=== PATIENT | male | born 1985 | race Caucasian/White ===

== ENCOUNTER 2024-02-12 20:17 | Emergency (ER) | payer BC, SELFPAY ==
[2024-02-12 20:17] VITALS: BP 166/98; PULSE 96; RESP 20; TEMP 36.8; O2SAT 95
[2024-02-12 20:32] VITALS: BMI 48.5
[2024-02-12 20:33] VITALS: BP 147/85; PULSE 91; RESP 20; TEMP 36.7
--- NOTE | 2024-02-12 20:52 | EKG12_ITS ---
Test Reason : CP Blood Pressure : / mmHG Vent. Rate : 084 BPM Atrial Rate : 084 BPM P-R Int : 192 ms QRS Dur : 100 ms QT Int : 360 ms P-R-T Axes : 006 016 008 degrees QTc Int : 425 ms Normal sinus rhythm Normal ECG Confirmed by DEANNE LEAVITT MD ([id number]), features editor MICHAEL FLORES ([id number]) on 02/15/2024 8:50:34 AM Referred By: Confirmed By:DEANNE LEAVITT MD
[2024-02-12 21:00] LABS: Absolute Lymphocyte Count 3.38 X10^3/uL (0.83-4.51); Absolute Neutrophil Count 8.6 X10^3/uL (2.0-7.7); Basophil# 0.07 X10^3/uL; Basophil% 0.5 % (0-1); Eosinophil# 0.11 X10^3/uL; Eosinophils% 0.8 % (0-5); Hematocrit 51.2 % (40-54); Hemoglobin 16.8 g/dL (13.0-16.5); Lymphocyte # 3.38 X10^3/ul (0.83-4.51); Mean Corp Hgb Conc 32.8 g/dL (32-36); Mean Corpuscular Hgb 27.8 pg (27.0-32.0); Mean Corpuscular Volume 84.8 fL (80-94); Mean Platelet Vol. 10.8 fl (6.2-12.0); Monocyte# 0.83 X10^3/uL; Monocyte% 6.4 % (0-10); NRBC Flagged by Analyzer 0 % (0-5); Neutrophil # 8.55 X10^3/uL (2.7-7.7); Neutrophil % 65.8 % (47-70); Platelet Count 336 K/mm3 (150-450); RBC Distribution Width CV 12.6 % (11.6-14.6); RBC Distribution Width SD 38.5 fl (35.1-43.9); Red Blood Count 6.04 M/mm3 (4.6-6.2)
--- NOTE | 2024-02-12 21:10 | RAD_ITS ---
STUDY: X-RAY CHEST REASON FOR EXAM: Male, 38 years old. cough TECHNIQUE: Single AP portable view of the chest. COMPARISON: None. FINDINGS: The lungs are clear and expanded. There is no demonstrated pleural abnormality. Normal size heart. Normal mediastinum and mary. Normal visualized pulmonary arteries. Normal visualized aortic arch and descending thoracic aorta. Normal visualized thoracic spine. Normal visualized ribs, clavicles, and shoulders. There is no demonstrated abnormality of the visualized soft tissue structures of the upper abdomen. RAD/Chest 1 View (Portable) IMPRESSION: Normal x-ray examination of the chest. Electronically Signed: Alo Martinez MD at 21:43 EDT ,
--- NOTE | 2024-02-12 21:11 | EDS_ITS ---
HPI History of Present Illness Chief Complaint: Chest Pain Detail of Chief Complaint: Patient has more than 1 complaint. Informant: patient and spouse/S.O. Onset/Context/Timing Onset: Today (Today around 1800 he had chest discomfort left side lasted an hour or so.), Days (Last several days she is experienced discomfort right and left shoulder region with diaphoresis and shortness of breath.) and Weeks (With regards to not feeling well with fatigue) Activity at onset: sudden Timing: Intermittent Quality: Positive for - (Achy shoulder region, tightness left chest region) Current Severity: Gone Maximum Severity: Moderate Worsened By: Nothing Relieved By: Nothing Associated Symptoms: Positive for Diaphoresis and Dyspnea; Negative for Nausea, Vomiting, Cough, Fever, Lightheadedness, Acid Reflux or Palpitations Narrative Narrative: Patient is a 38-year-old male with obstructive sleep apnea who was recently started on blood pressure medicine and restarted on oral agents for type 2 diabetes. Patient was suspicious his blood sugars were elevated. He states he is compliant with his CPAP machine. He denies history of PE or DVT. He has no risk factors for PE or DVT. He denies leg pain, swelling discoloration. He denies orthopnea or PND. Patient states every so months he feels vague fatigue weakness and not feeling well. This has been going on for a couple of weeks. He has had intermittent tightness achy sensation right and left shoulder associated with shortness of breath and diaphoresis. This lasts a couple of minutes at most. Patient also reports left-sided chest pain today that lasted for some time. This was not associated with nausea, vomiting or diaphoresis. Patient does not have history of reflux. Prior Similar Symptoms: No Recent Illness/Hospitalization: No CVD Risk Factors: Positive for Hypertension, Diabetes and Family History 1' </=55; Negative for Hypercholesterolemia PE Risk Factors: Negative for Recent Travel/Surgery, Recent Immobilization, Prior DVT or PE, Cancer or OCP + Smoking + >/=35 TAD Risk Factors: Positive for Hypertension; Negative for Marfan's Syndrome or Family History [facility] Medical History HTN (hypertension) OCD (obsessive compulsive disorder) Diabetes Allergy/AdvReac Type Severity Reaction Status Date / Time acetaminophen (From Vicodin) Allergy Severe Other Verified 02/12/24 20:25 hydrocodone (From Vicodin) Allergy Severe Other Verified 02/12/24 20:25 morphine Allergy Severe OTHER Verified 02/12/24 20:25 naproxen Allergy Severe Other Verified 02/12/24 20:25 Family History other other (Multiple relatives with heart disease.) Social History (Updated 02/12/24 @ 21:[address] Ian Benavides MD) household members: spouse Smoking Status: Never smoker ROS ROS ED Constitutional Constitutional ED: Denies chills, fever(s), subjective or sweats Eyes Eyes: Reports none ENT ENT ED: Denies ear pain, rhinorrhea or sore throat Cardiovascular Cardiovascular: Reports as per HPI; Denies orthopnea or paroxysmal nocturnal dyspnea Respiratory/Chest Respiratory/Chest: Reports dyspnea; Denies cough, dyspnea on exertion, orthopnea or paroxysmal nocturnal dyspnea Gastrointestinal Gastrointestinal: Denies abdominal pain, nausea or vomiting Genitourinary Genitourinary ED: Denies dysuria, hematuria or urinary frequency Musculoskeletal Musculoskeletal: Denies back pain or neck pain Integumentary Denies abscess, Abrasions or rash Neurologic Neurologic: Denies headache(s), paresthesias or weakness Psychiatric Psychiatric: Denies anxiety or depression Endocrine Endocrinology: Denies cold intolerance or heat intolerance Hematologic/Lymphatic Hematologic/Lymphatic: Denies easy bleeding or easy bruising Allergic/Immunologic Allergic/Immunologic ED: Denies mouth swelling or tongue swelling EXAM Physical Exam Const Vital Signs: 02/12/24 20:17 02/12/24 20:28 02/12/24 20:33 Temperature 98.3 F 98.1 F Temperature Source Temporal Temporal Pulse Rate 96 91 Respiratory Rate 20 H 20 H Respiratory Effort Normal Blood Pressure 166/98 H 147/85 H Blood Pressure Mean 120 105 Pulse Ox 95 Oxygen Delivery Method Room Air 02/12/24 21:17 02/12/24 22:00 02/12/24 23:00 Temperature 98.1 F Temperature Source Temporal Pulse Rate 78 89 89 Respiratory Rate 16 20 H 16 Respiratory Effort Blood Pressure 147/86 H 143/82 H 119/58 L Blood Pressure Mean 106 102 78 Pulse Ox 98 95 98 Oxygen Delivery Method Room Air Room Air Room Air Positive well nourished and well developed Constitutional Narrative: BMI is 48.5. General Appearance ED: well developed and NAD; Negative for pallor HEENT Reports moist mucous membranes HEENT Narrative: Nares patent. Posterior pharynx is normal. normocephalic and atraumatic Eyes PERRL and EOMs intact bilaterally General Eye ED: Negative for pale conjunctiva or scleral icterus Neck no lymphadenopathy, supple and no JVD Chest Wall inspection of chest normal and palpation of chest normal Resp normal respiratory effort and clear to auscultation bilaterally Cardio regular rate, regular rhythm, S1 normal heart sound, S2 normal heart sound and no murmurs GI normal to inspection, nondistended, normoactive bowel sounds, soft to palpation, non-tender, non-distended and no masses; Negative for hepatosplenomegaly Back/Spine no CVA tenderness Extremity normal to inspection Extremity Narrative: There is no asymmetry, swelling, discoloration, leg vein distention, palpable cords or tenderness along the distribution of the deep venous system. Neuro oriented x3 and CN's II-XII intact bilaterally Neuro Narrative: Moves all extremities. Sensorium / Orientation: awake and alert Psych mental status grossly normal Skin no rashes or lesions noted and no wounds General Skin Exam: Negative for jaundice or pallor Heart Score History: Slightly/Non-Suspicious ECG: Normal Age: </= 45 years Risk Factors: >/= 3 Risk Factors or History of CAD Troponin: </= Normal Limit Score: 2 MDM MDM MDM Narrative Medical decision making narrative: Patient with atypical presentation for possible cardiac versus noncardiac. Noncardiac would include reflux, esophagitis, peptic ulcer disease,. History and physical not suggestive or consistent with pericarditis or myocarditis. Patient does not have symptoms of pneumonia. Patient's Wells score is less than 3. Patient is PERC negative. Therefore a D-dimer and CTA was not ordered. History & Record Review Discussion w/independent historian: Patient and Significant other Additional record(s) reviewed:: No prior records Lab Data Attestation: I reviewed the patient's lab results. Lab results narrative: White count is slightly elevated. H&H is unremarkable. Differential is normal. Electrolyte panel is remarkable for elevated glucose of 194 with normal CO2 anion gap. Lipase is normal. First troponin is normal at 8. 2-hour troponin is pending. Liver enzymes are elevated AST and ALT at 66 and 108 respectively. Alkaline phosphatase is elevated at 156. Labs: Laboratory Results - last 24 hr 02/12/24 02/12/24 20:35 23:07 WBC 13.0 H RBC 6.04 Hgb 16.8 H Hct 51.2 MCV 84.8 MCH 27.8 MCHC 32.8 RDW Std Deviation 38.5 RDW Coeff of Tin 12.6 Plt Count 336 MPV 10.8 Immature Gran % (Auto) 0.500 Neut % (Auto) 65.8 Lymph % (Auto) 26.0 [place] % (Auto) 6.4 Eos % (Auto) 0.8 Baso % (Auto) 0.5 Absolute Neuts (auto) 8.6 H Absolute Lymphs (auto) 3.38 Nucleated RBC % 0 Sodium 135 L Potassium 3.8 Chloride 103 Carbon Dioxide 23.0 Anion Gap 9 BUN 28 H Creatinine 1.22 Estim Creat Clear Calc 139.32 Est GFR (MDRD) Af Amer 85 Est GFR (MDRD) Non-Af 70 BUN/Creatinine Ratio 23.0 H Glucose 194 H Calcium 9.7 Total Bilirubin 0.50 AST 66 H ALT 108 H Alkaline Phosphatase 156 H Troponin I High Sens 8 8 Total Protein 8.1 Albumin 3.9 Globulin 4.2 Albumin/Globulin Ratio 0.9 Lipase 25 Second troponin is 8 with a delta of 0. Heart score is 2. Radiography Chest X-Ray - ED: 1 View and Read by ED Physician (Single view portable film reveals no cardiomegaly. Cardiac silhouette is normal. Lung parenchyma is unremarkable. Mediastinum is unremarkable. Osseous structures are normal. This independent reviewed interpreted by me at 2118.) Diagnostic Testing: Clinical Impression(s) from Imaging Studies Chest X-Ray 02/12/24 21:10 IMPRESSION: Normal x-ray examination of the chest. Electronically Signed: Alo Martinez MD at 21:43 EDT , EKG Initial EKG: Attestation: I personally reviewed and interpreted this EKG as follows: Interpretation: Sinus Rhythm (Rate is 84. The EKG is normal. MT interval is 192 ms. QRS duration 100 ms. QT duration 360 ms. [place] is normal.) Discharge Plan Triage Chief Complaint: Chest Pain ED Provider: Ian Benavides Dx/Rx/DC Orders Clinical Impression: Left-sided chest pain, Obstructive sleep apnea, Hyperglycemia due to type 2 diabetes mellitus, History of hypertension Instructions: ED Chest Pain, Uncertain Cause, ED Diabetic Hyperglycemia Primary Care Provider: Brock Sandoval Referrals: Brock Sandoval MD [Primary Care Provider] - 3-5 Days Print Language: Azerbaijani Disposition Disposition: Home, Self Care
[2024-02-12 21:17] VITALS: BP 147/86; PULSE 78; RESP 16; O2SAT 98
[2024-02-12 21:22] LABS: ALB/GLOB Ratio 0.9 RATIO (0.9-2.4); AST(SGOT) 66 U/L (15-37); Alanine Aminotransfer ALT/SGPT 108 U/L (16-61); Albumin, Serum 3.9 g/dL (3.2-5.0); Alkaline Phosphatase 156 U/L (45-117); Anion Gap 9 (5-15); BUN 28 mg/dL (7-18); Calcium,Total 9.7 mg/dL (8.5-10.1); Chloride 103 mmol/L (98-107); Creatinine, Serum 1.22 mg/dL (0.70-1.30); EST Glomerular Filtration Rate 70 mL/min (>60); Est Glom Filt Rate - Afr Amer 85 mL/min (>60); Estimated Creatinine Clearance 139.32 ml/min; Globulin 4.2 g/dL (2.2-4.2); Glucose 194 mg/dL (74-106); Lipase 25 U/L (13-75); Potassium 3.8 mmol/L (3.5-5.1); Protein, Total 8.1 g/dL (6.4-8.2); Sodium Level 135 mmol/L (136-145); Troponin-I HS 8 pg/mL (3.0-78.0)
[2024-02-12 22:00] VITALS: BP 143/82; PULSE 89; RESP 20; TEMP 36.7; O2SAT 95
[2024-02-12 23:00] VITALS: BP 119/58; PULSE 89; RESP 16; O2SAT 98
[2024-02-12 23:36] LABS: Troponin-I HS 8 pg/mL (3.0-78.0)
[2024-02-12 23:47] VITALS: BP 122/59; PULSE 81; RESP 16; TEMP 36.4; O2SAT 99
== END 2024-02-12 23:48 | disposition home or self-care (01) ==
PROVIDERS: Nurse Practitioner; Emergency Provider Emergency Medicine; PCP Family Medicine; Visit Provider Emergency Medicine
DX: R07.89 Other chest pain (principal); E11.65 Type 2 diabetes mellitus with hyperglycemia; G47.33 Obstructive sleep apnea (adult) (pediatric); I10 Essential (primary) hypertension; Z99.89 Dependence on other enabling machines and devices
CPT/HCPCS: 71045; 80053; 83690; 84484; 85025; 93005; 99283; A4216

== ENCOUNTER 2024-03-17 07:52 | Emergency (ER) | payer BC, SELFPAY ==
[2024-03-17 07:53] VITALS: BP 196/102; PULSE 70; RESP 16; TEMP 36.7; O2SAT 96; BMI 48.1
--- NOTE | 2024-03-17 08:04 | ED.VIS.CHEST ---
HPI History of Present Illness Chief Complaint: Chest Pain Informant: patient Onset/Context/Timing Onset: Today Activity at onset: sudden Timing: Waxes and wanes Quality: Positive for Tightness Location: Left Chest and - (Left shoulder) Worsened By: Nothing Relieved By: Nothing Associated Symptoms: Positive for Nausea, Cough, Lightheadedness, Acid Reflux and Palpitations; Negative for Vomiting, Diaphoresis, Dyspnea or Fever Narrative Narrative: Patient presents with chest pain that began this morning. Patient states that over the last couple days he had noted some pain in his left shoulder going down to his left arm. Patient states it would come and go. Patient states that when he woke up this morning he noted pain in his left shoulder that radiated down into his chest. Patient states he called his primary care physician and was directed to come to the emergency department. Patient states nothing makes it better and nothing makes it worse. Patient describes his pain as a tightness. Patient admits to some nausea. Patient also admits to some lightheadedness and palpitations. Patient states he got a new rosi on his phone which indicated that he was having frequent PVCs. Patient states that when he gets the PVCs he feels them in his throat which causes him to cough. Patient states he has also been fatigued over the last month. Patient states he was recently started on antihypertensive medication and Mounjaro. CVD Risk Factors: Positive for Hypertension, Diabetes and Family History 1' </=55; Negative for Hypercholesterolemia or Smoking PE Risk Factors: Negative for Recent Travel/Surgery, Recent Immobilization, Prior DVT or PE, Cancer or OCP + Smoking + >/=35 PFSH PFSH Medical History (Updated 03/17/24 @ 12:[address] Kenneth Quevedo, ) HTN (hypertension) OCD (obsessive compulsive disorder) Diabetes Allergy/AdvReac Type Severity Reaction Status Date / Time acetaminophen (From Vicodin) Allergy Severe Other Verified 03/17/24 07:55 hydrocodone (From Vicodin) Allergy Severe Other Verified 03/17/24 07:55 morphine Allergy Severe OTHER Verified 03/17/24 07:55 naproxen Allergy Severe Other Verified 03/17/24 07:55 Surgical History (Updated 03/17/24 @ 08:[address] Kenneth Quevedo DO) History of excision of pilonidal cyst History of herniorrhaphy Hx of cholecystectomy Hx of tonsillectomy Social History household members: spouse Smoking Status: Never smoker ROS ROS ED Constitutional Constitutional ED: Denies chills or fever(s) Eyes Eyes: Denies blurry vision or change in vision ENT ENT ED: Denies rhinorrhea or sore throat Cardiovascular Cardiovascular: Reports chest pain and palpitations Respiratory/Chest Respiratory/Chest: Reports cough; Denies dyspnea Gastrointestinal Gastrointestinal: Reports nausea; Denies vomiting Genitourinary Genitourinary ED: Denies dysuria or hematuria Musculoskeletal Musculoskeletal: Reports neck pain; Denies back pain Integumentary Denies abscess or rash Neurologic Neurologic: Denies headache(s) or weakness Allergic/Immunologic Allergic/Immunologic ED: Denies mouth swelling or urticaria EXAM Physical Exam Const Vital Signs: 03/17/24 07:53 03/17/24 08:06 03/17/24 08:52 Temperature 98.1 F Temperature Source Temporal Pulse Rate 70 73 Respiratory Rate 16 20 H Respiratory Effort Normal Non-Labored Blood Pressure 196/102 H 142/83 H Blood Pressure Mean 133 102 Pulse Ox 96 96 Oxygen Delivery Method Room Air Room Air 03/17/24 10:00 03/17/24 11:00 Temperature Temperature Source Pulse Rate 64 66 Respiratory Rate 20 H 21 H Respiratory Effort Blood Pressure 110/65 127/84 H Blood Pressure Mean 80 98 Pulse Ox 93 95 Oxygen Delivery Method Room Air Room Air Positive well nourished and well developed General Appearance ED: well developed and NAD HEENT Reports moist mucous membranes Neck supple and no JVD Chest Wall inspection of chest normal and palpation of chest normal Resp normal respiratory effort and clear to auscultation bilaterally Cardio regular rate and regular rhythm GI soft to palpation, non-tender and non-distended Extremity General Extremety ED: Negative for edema or tenderness General Extremity: Negative for edema Neuro oriented x3, CN's II-XII intact bilaterally and no sensory deficits noted Sensorium / Orientation: awake and alert Motor Exam: strength 5/5 throughout Psych mental status grossly normal Heart Score History: Slightly/Non-Suspicious ECG: Normal Age: </= 45 years Risk Factors: >/= 3 Risk Factors or History of CAD Troponin: </= Normal Limit Score: 2 MDM MDM MDM Narrative Medical decision making narrative: Differential diagnosis includes cardiac dysrhythmia, cardiac ischemia, electrolyte abnormality, pneumonia, pneumothorax, hypertensive urgency, hypertensive emergency, and anxiety. EKG will be obtained to assess for cardiac dysrhythmia and cardiac ischemia. Chest x-ray will be obtained to assess for pneumonia and pneumothorax. CBC will be obtained to assess for leukocytosis and anemia. Basic metabolic profile will be obtained to assess for electrolyte abnormality and renal function. High-sensitivity troponin will be obtained to assess for cardiac ischemia. 2-hour repeat high-sensitivity troponin will be obtained to assess for ongoing cardiac ischemia. Lab Data Attestation: I reviewed the patient's lab results. Lab results narrative: CBC was reviewed and was within normal limits. Basic metabolic profile was reviewed. Potassium was slightly low at 3.4. Glucose was mildly elevated at 175. The remainder was within normal limits. High-sensitivity troponin was reviewed and was normal at 7. 2-hour repeat high-sensitivity troponin was reviewed and was normal at 7. Labs: Laboratory Results - last 24 hr 03/17/24 03/17/24 08:15 10:23 WBC 8.2 RBC 5.65 Hgb 15.9 Hct 47.7 MCV 84.4 MCH 28.1 MCHC 33.3 RDW Std Deviation 40.5 RDW Coeff of Tin 13.2 Plt Count 304 MPV 10.9 Immature Gran % (Auto) 0.400 Neut % (Auto) 61.0 Lymph % (Auto) 30.0 [place] % (Auto) 6.8 Eos % (Auto) 1.2 Baso % (Auto) 0.6 Absolute Neuts (auto) 5.0 Absolute Lymphs (auto) 2.46 Nucleated RBC % 0 Sodium 136 Potassium 3.4 L Chloride 106 Carbon Dioxide 24.0 Anion Gap 6 BUN 15 Creatinine 0.86 Estim Creat Clear Calc 196.64 Est GFR (MDRD) Af Amer 127 Est GFR (MDRD) Non-Af 105 BUN/Creatinine Ratio 17.5 Glucose 175 H Calcium 9.1 Troponin I High Sens 7 7 Radiography Chest X-Ray - ED: 2 View, Read by ED Physician, Read by Radiologist and No Acute Disease Diagnostic Testing: Clinical Impression(s) from Imaging Studies Chest X-Ray 03/17/24 08:45 IMPRESSION: Normal x-ray examination of the chest. Electronically Signed: Clayton Robles MD at 9:00 EDT , PA and lateral chest x-ray was obtained. There are 2 views. On my independent interpretation, lung dennis are clear. There is normal cardiac silhouette. Bony thorax is normal. There is no acute process noted. Radiologist also interpreted the x-ray and agrees. EKG Initial EKG: Attestation: I personally reviewed and interpreted this EKG as follows: Interpretation: Sinus Rhythm (68) and No Acute Injury Pattern Comments: EKG was obtained. On my independent interpretation, it showed a normal sinus rhythm with a rate of 68. [place] interval, QRS interval, and QTc intervals were all normal. [place] was normal. There are no acute ST or T wave changes. Prior EKG tracings: available for review Prior: Unchanged (02/12/2024) Treatment and Re-Evaluation :: Patient was given aspirin here. Patient was advised of his findings. Patient has a HEART score of 2. Patient was advised that this is low risk for acute cardiac event. Patient was instructed to follow-up with his primary care physician for further evaluation. Patient was instructed to continue to follow-up with his Holter monitor as scheduled. Patient was instructed to return if worse in any way. Patient understood and was agreeable with the plan. All questions were answered. Discharge Plan Triage Chief Complaint: Chest Pain ED Provider: Kenneth Quevedo Dx/Rx/DC Orders Clinical Impression: Chest pain, Diabetes mellitus, Hypertension Instructions: ED Chest Pain, Uncertain Cause Primary Care Provider: Brock Sandoval Referrals: Brock Sandoval MD [Primary Care Provider] - 5-7 Days Print Language: Hungarian Disposition Disposition: Home, Self Care
--- NOTE | 2024-03-17 08:28 | EKG12_ITS ---
Test Reason : CHEST PAIN Blood Pressure : / mmHG Vent. Rate : 068 BPM Atrial Rate : 068 BPM P-R Int : 168 ms QRS Dur : 098 ms QT Int : 426 ms P-R-T Axes : -08 006 010 degrees QTc Int : 452 ms Normal sinus rhythm Normal ECG Confirmed by FREDERIC HERNANDEZ, ADI ([id number]), assistant production editor TOMMY MURPHY ([id number]) on 03/23/2024 10:36:53 A M Referred By: BEATRIZ Confirmed By:SLAO DE LA GARZA MD
[2024-03-17] MEDS: Aspirin 81 MG TAB.CHEW 324 MG PO (08:38)
--- NOTE | 2024-03-17 08:45 | RAD_ITS ---
STUDY: X-RAY CHEST REASON FOR EXAM: Male, 38 years old. Left-sided chest pain and left arm pain. TECHNIQUE: PA and lateral views of the chest. COMPARISON: Comparison is made with prior study dated February 12, 2024. FINDINGS: EKG electrodes are seen. The lungs are clear and expanded. There is no demonstrated pleural abnormality. Normal size heart. Normal mediastinum and mary. Normal visualized pulmonary arteries. Normal visualized aortic arch and descending thoracic aorta. Normal visualized thoracic spine. Normal visualized ribs, clavicles, and shoulders. There is no demonstrated abnormality of the visualized soft tissue structures of the upper abdomen. RAD/Chest PA and Lateral IMPRESSION: Normal x-ray examination of the chest. Electronically Signed: Clayton Robles MD at 9:00 EDT ,
[2024-03-17 08:52] VITALS: BP 142/83; PULSE 73; RESP 20; O2SAT 96
[2024-03-17 08:53] LABS: Absolute Lymphocyte Count 2.46 X10^3/uL (0.83-4.51); Basophil# 0.05 X10^3/uL; Basophil% 0.6 % (0-1); Eosinophils% 1.2 % (0-5); Hematocrit 47.7 % (40-54); Hemoglobin 15.9 g/dL (13.0-16.5); Lymphocyte # 2.46 X10^3/ul (0.83-4.51); Mean Corp Hgb Conc 33.3 g/dL (32-36); Mean Corpuscular Hgb 28.1 pg (27.0-32.0); Mean Corpuscular Volume 84.4 fL (80-94); Mean Platelet Vol. 10.9 fl (6.2-12.0); Monocyte# 0.56 X10^3/uL; Monocyte% 6.8 % (0-10); NRBC Flagged by Analyzer 0 % (0-5); Neutrophil # 4.99 X10^3/uL (2.7-7.7); Platelet Count 304 K/mm3 (150-450); RBC Distribution Width CV 13.2 % (11.6-14.6); RBC Distribution Width SD 40.5 fl (35.1-43.9); Red Blood Count 5.65 M/mm3 (4.6-6.2); White Blood Count 8.2 K/mm3 (4.4-11.0)
[2024-03-17 09:10] LABS: Anion Gap 6 (5-15); BUN 15 mg/dL (7-18); BUN/Creat Ratio 17.5 RATIO (10-20); Calcium,Total 9.1 mg/dL (8.5-10.1); Chloride 106 mmol/L (98-107); Creatinine, Serum 0.86 mg/dL (0.70-1.30); EST Glomerular Filtration Rate 105 mL/min (>60); Est Glom Filt Rate - Afr Amer 127 mL/min (>60); Estimated Creatinine Clearance 196.64 ml/min; Glucose 175 mg/dL (74-106); Potassium 3.4 mmol/L (3.5-5.1); Sodium Level 136 mmol/L (136-145); Troponin-I HS (w/2H Reflex) 7 pg/mL (3.0-78.0)
[2024-03-17 10:00] VITALS: BP 110/65; PULSE 64; RESP 20; O2SAT 93
[2024-03-17 10:45] LABS: Reflex Troponin-HS? (from REC) Y
[2024-03-17 11:00] VITALS: BP 127/84; PULSE 66; RESP 21; O2SAT 95
[2024-03-17 11:24] LABS: Troponin-I HS 7 pg/mL (3.0-78.0)
[2024-03-17 12:06] VITALS: BP 133/79; PULSE 74; RESP 16; TEMP 36.3; O2SAT 97
[2024-03-17 12:23] VITALS: BP 127/79; PULSE 71; RESP 15; TEMP 36.4; O2SAT 99
== END 2024-03-17 12:24 | disposition home or self-care (01) ==
PROVIDERS: Emergency Provider Emergency Medicine; PCP Family Medicine; Visit Provider Emergency Medicine
DX: R07.89 Other chest pain (principal); E11.9 Type 2 diabetes mellitus without complications; I10 Essential (primary) hypertension; Z79.85 Long-term (current) use of injectable non-insulin antidiabetic drugs; Z79.899 Other long term (current) drug therapy
CPT/HCPCS: 71046; 80048; 84484; 85025; 93005; 99284; A4216

== ENCOUNTER 2024-04-11 20:37 | Emergency (ER) | payer BC, SELFPAY ==
[2024-04-11 20:37] VITALS: BP 158/111; PULSE 101; RESP 16; TEMP 36.9; O2SAT 98; BMI 45.8
[2024-04-11 20:39] VITALS: BP 117/82; PULSE 89; RESP 16; TEMP 36.1; O2SAT 98
--- NOTE | 2024-04-11 20:50 | CT_ITS ---
EXAM: CT ABDOMEN AND PELVIS WITH INTRAVENOUS CONTRAST CLINICAL INDICATION: Distention, pain, nausea prior obstruction TECHNIQUE: Helically acquired images were obtained of the abdomen and pelvis with intravenous contrast. This CT exam was performed using one or more of the following dose reduction techniques: automated exposure control, adjustment of the mA and/or kV according to patient size, and/or use of iterative reconstruction technique. CONTRAST: IV 100mL [id number] COMPARISON: No relevant prior studies available. FINDINGS: LOWER THORAX: No significant abnormality. Lung bases are clear. No cardiomegaly. No significant pericardial effusion. ABDOMEN: LIVER: No significant abnormality. Homogeneous. No focal mass. GALLBLADDER AND BILE DUCTS: Status post cholecystectomy. No intra- or extrahepatic biliary ductal dilation. PANCREAS: No significant abnormality. No focal cystic or solid mass. SPLEEN: No significant abnormality. Normal size without focal cystic or solid mass. ADRENALS: No significant abnormality. No nodules. KIDNEYS AND URETERS: No significant abnormality. Normal renal size and position. No hydronephrosis. STOMACH AND BOWEL: Air-fluid levels within the colon which is not significantly distended. PELVIS: APPENDIX: No evidence of acute appendicitis. BLADDER: No significant abnormality. REPRODUCTIVE: Normal as visualized. No mass. ABDOMEN and PELVIS: INTRAPERITONEAL SPACE: See below. No ascites or other fluid collection. No free air. BONES/JOINTS: No significant abnormality. No suspicious lytic or blastic abnormality. SOFT TISSUES: Status post ventral abdominal hernia repair with mesh. VASCULATURE: No significant abnormality. Abdominal aorta is non-dilated. LYMPH NODES: Central mesenteric hazy opacity and mild prominence of the central mesentery lymph nodes suggesting sclerosing mesenteritis. CT/Abdomen/Pelvis W IV Cont ONLY IMPRESSION: 1. Suggestion of sclerosing mesenteritis. 2. Air-fluid levels within the colon which is not significantly distended. Correlate for diarrhea. No bowel thickening or adjacent inflammation. Electronically Signed: Jareth Woods DO at 21:49 EDT ,
--- NOTE | 2024-04-11 20:56 | EDS_ITS ---
HPI History of Present Illness Chief Complaint: Abd Pain Detail of Chief Complaint: Abdominal pain with nausea and diarrhea Informant: patient Onset/Context/Timing Onset: Today Context: Sudden Onset Timing: Continuous Quality: Fullness, crampy pain Location: Central abdomen Current Severity: Mild Maximum Severity: Moderate Worsened by: Attempt to eat or drink anything Relieved by: Nothing Associated Symptoms Associated Symptoms: Diarrhea, which patient states he has had with prior partial small bowel ob Narrative Narrative: Patient is a 38-year-old male. He presents with abdominal pain and fullness with nausea without vomiting. He had diarrhea. He states he had diarrhea in the past with partial small bowel obstruction. He is status post cholecystectomy. He had a ventral hernia that was repaired. He has significant mount of mesh. He denies blood or mucus in the diarrhea. He denies fever or chills. He denies cardiac or respiratory symptoms. He denies headache, visual, ocular auditory symptoms. He denies dysuria, frequency, urgency or hematuria. He states his urine may be slightly darker than normal. Prior similar symptoms: Yes Recent Illness/Hospitalization: No PFSH PFSH Medical History HTN (hypertension) OCD (obsessive compulsive disorder) Diabetes Home Medications ?Medication ?Instructions ?Recorded ?Last Taken ?Type prednisone 10 mg tablet 40 mg (4 x 10 mg) PO DAILY 30 days 04/11/24 Unknown Rx #120 tabs Allergy/AdvReac Type Severity Reaction Status Date / Time acetaminophen (From Vicodin) Allergy Severe Other Verified 04/11/24 20:39 hydrocodone (From Vicodin) Allergy Severe Other Verified 04/11/24 20:39 morphine Allergy Severe OTHER Verified 04/11/24 20:39 naproxen Allergy Severe Other Verified 04/11/24 20:39 Surgical History History of excision of pilonidal cyst History of herniorrhaphy Hx of cholecystectomy Hx of tonsillectomy Social History household members: spouse Smoking Status: Never smoker ROS ROS ED Constitutional Constitutional ED: Denies chills, fever(s), subjective or sweats Eyes Eyes: Denies blurry vision or change in vision ENT ENT ED: Denies ear pain, rhinorrhea or sore throat Cardiovascular Cardiovascular: Denies chest pain or palpitations Respiratory/Chest Respiratory/Chest: Denies cough, dyspnea or dyspnea on exertion Gastrointestinal Gastrointestinal: Reports abdominal pain, diarrhea and nausea; Denies constipation, melena or vomiting Genitourinary Genitourinary ED: Reports other Details: HPI ; Denies dysuria, hematuria or urinary frequency Musculoskeletal Musculoskeletal: Denies arthralgias, back pain or myalgias Integumentary Denies rash Neurologic Neurologic: Denies paresthesias or weakness Endocrine Endocrinology: Denies cold intolerance or heat intolerance EXAM Physical Exam Const Vital Signs: 04/11/24 20:37 04/11/24 20:39 04/11/24 21:39 Temperature 98.4 F 97 F L 98.6 F Temperature Source Temporal Temporal Oral Pulse Rate 101 H 89 88 Respiratory Rate 16 16 16 Blood Pressure 158/111 H 117/82 H 118/75 Blood Pressure Mean 126 93 89 Pulse Ox 98 98 94 Oxygen Delivery Method Room Air Room Air Room Air Positive well nourished and well developed General Appearance ED: well developed and NAD; Negative for cyanotic or diaphoretic HEENT Reports dry mucous membranes HEENT Narrative: Head is atraumatic and normocephalic. Ears normal. Nares patent. Posterior pharynx is normal. Mouth ED: Yes dry mucous membranes Mouth: dry mucous membranes Eyes PERRL and EOMs intact bilaterally General Eye ED: Negative for pale conjunctiva or scleral icterus Neck no lymphadenopathy, supple and no JVD Chest Wall inspection of chest normal and palpation of chest normal Resp normal respiratory effort and clear to auscultation bilaterally Cardio regular rate, regular rhythm, S1 normal heart sound, S2 normal heart sound and no murmurs GI no masses; Negative for non-tender, non-distended or hepatosplenomegaly Inspection: abdominal distention Auscultation: hypoactive bowel sounds Palpation: soft and tender periumbilical; Negative for guarding, splenomegaly or rebound tenderness present Back/Spine no CVA tenderness Cervical Spine: Negative for cervical spine tenderness Thoracic Spine / Upper Back: Negative for thoracic spinal tenderness Extremity normal to inspection General Extremety ED: Negative for tenderness Neuro oriented x3 and CN's II-XII intact bilaterally Sensorium / Orientation: alert Psych mental status grossly normal Skin no rashes or lesions noted, no wounds and skin turgor normal General Skin Exam: elasticity normal MDM MDM MDM Narrative Medical decision making narrative: In light of patient's history and prior presentations for partial small bowel obstruction CT of the abdomen was ordered appropriate blood work was ordered to assess renal function, glucose since he is diabetic and electrolytes and specifically evaluate for hypokalemia. CBC to assess white count lactate was ordered as well. 1 L of normal saline was ordered since he clinically is dehydrated. Zofran for his nausea and Dilaudid for his discomfort since he developed swelling with morphine. Furthermore, he reports no reaction to Dilaudid. Prior records were assessed. He was seen in March of this year for chest pain and February for hypertension. There are no records of him being admitted for partial small bowel obstruction. He had surgery done at [facility] in 2008. Lab Data Attestation: I reviewed the patient's lab results. Lab results narrative: White count is elevated 15.3 thousand with mild shift. There is no bandemia. Hemoglobin elevated 17. Labs: Laboratory Results - last 24 hr 04/11/24 21:00 WBC 15.3 H RBC 5.99 Hgb 17.0 H Hct 51.0 MCV 85.1 MCH 28.4 MCHC 33.3 RDW Std Deviation 41.9 RDW Coeff of Tin 13.5 Plt Count 354 MPV 10.7 Immature Gran % (Auto) 0.500 Neut % (Auto) 74.9 H Lymph % (Auto) 19.0 Rolette % (Auto) 4.8 Eos % (Auto) 0.5 Baso % (Auto) 0.3 Absolute Neuts (auto) 11.5 H Absolute Lymphs (auto) 2.91 Nucleated RBC % 0 Sodium 139 Potassium 3.9 Chloride 107 Carbon Dioxide 23.0 Anion Gap 9 BUN 20 H Creatinine 0.96 Estim Creat Clear Calc 171.46 Est GFR (MDRD) Af Amer 112 Est GFR (MDRD) Non-Af 92 BUN/Creatinine Ratio 20.8 H Glucose 143 H Lactic Acid 1.2 Calcium 9.4 Radiography Diagnostic Testing: Clinical Impression(s) from Imaging Studies Abdomen/Pelvis CT 04/11/24 20:50 IMPRESSION: 1. Suggestion of sclerosing mesenteritis. 2. Air-fluid levels within the colon which is not significantly distended. Correlate for diarrhea. No bowel thickening or adjacent inflammation. Electronically Signed: Jareth Woods DO at 21:49 EDT , Management Discussion w/another healthcare provider: [facility] [facility] Work[employer] (Spoke with Dr. Calderon. He was made aware of patient's history physical findings and CAT scan results. He recommended prednisone 40 mg a day for 2 weeks. 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
[2024-04-11] MEDS: Ondansetron 4 MG/2 ML Vial IV (21:02)
[2024-04-11] MEDS: HYDROmorphone 1 MG/ML Syringe IV (21:02)
[2024-04-11 21:10] LABS: Absolute Lymphocyte Count 2.91 X10^3/uL (0.83-4.51); Absolute Neutrophil Count 11.5 X10^3/uL (2.0-7.7); Basophil# 0.05 X10^3/uL; Basophil% 0.3 % (0-1); Eosinophil# 0.07 X10^3/uL; Eosinophils% 0.5 % (0-5); Lymphocyte # 2.91 X10^3/ul (0.83-4.51); Mean Corp Hgb Conc 33.3 g/dL (32-36); Mean Corpuscular Hgb 28.4 pg (27.0-32.0); Mean Corpuscular Volume 85.1 fL (80-94); Mean Platelet Vol. 10.7 fl (6.2-12.0); Monocyte# 0.74 X10^3/uL; Monocyte% 4.8 % (0-10); NRBC Flagged by Analyzer 0 % (0-5); Neutrophil # 11.45 X10^3/uL (2.7-7.7); Neutrophil % 74.9 % (47-70); Platelet Count 354 K/mm3 (150-450); RBC Distribution Width CV 13.5 % (11.6-14.6); RBC Distribution Width SD 41.9 fl (35.1-43.9); Red Blood Count 5.99 M/mm3 (4.6-6.2); White Blood Count 15.3 K/mm3 (4.4-11.0)
[2024-04-11 21:25] LABS: Anion Gap 9 (5-15); BUN 20 mg/dL (7-18); BUN/Creat Ratio 20.8 RATIO (10-20); Calcium,Total 9.4 mg/dL (8.5-10.1); Chloride 107 mmol/L (98-107); Creatinine, Serum 0.96 mg/dL (0.70-1.30); EST Glomerular Filtration Rate 92 mL/min (>60); Est Glom Filt Rate - Afr Amer 112 mL/min (>60); Estimated Creatinine Clearance 171.46 ml/min; Glucose 143 mg/dL (74-106); Potassium 3.9 mmol/L (3.5-5.1); Sodium Level 139 mmol/L (136-145)
[2024-04-11 21:39] VITALS: BP 118/75; PULSE 88; RESP 16; TEMP 37; O2SAT 94
[2024-04-11 21:45] LABS: Lactic Acid 1.2 mmol/L (0.4-1.9)
[2024-04-11 22:56] VITALS: BP 118/81; PULSE 81; RESP 18; TEMP 36.9; O2SAT 100
[2024-04-11] MEDS: predniSONE 20 MG Tablet 40 MG PO (22:56)
== END 2024-04-11 22:58 | disposition home or self-care (01) ==
PROVIDERS: Emergency Provider Emergency Medicine; PCP Family Medicine; Visit Provider Emergency Medicine
DX: K65.4 Sclerosing mesenteritis (principal); E11.9 Type 2 diabetes mellitus without complications; R19.7 Diarrhea, unspecified; E86.0 Dehydration; R00.0 Tachycardia, unspecified; I10 Essential (primary) hypertension; Z90.49 Acquired absence of other specified parts of digestive tract
CPT/HCPCS: 74177; 80048; 83605; 85025; 96374; 96375; 99283; J7030; Q9967; A4216; J2405

== ENCOUNTER → 2024-04-13 | Outpatient (CLI) | payer BC, SELFPAY ==
[2024-04-13 10:03] LABS: Erythrocyte Sedimentation Rate 22 mm/hr (0-20)
[2024-04-13 10:04] LABS: Absolute Lymphocyte Count 2.13 X10^3/uL (0.83-4.51); Absolute Neutrophil Count 9.2 X10^3/uL (2.0-7.7); Basophil# 0.03 X10^3/uL; Basophil% 0.2 % (0-1); Eosinophil# 0.07 X10^3/uL; Eosinophils% 0.6 % (0-5); Hemoglobin 15.7 g/dL (13.0-16.5); Lymphocyte # 2.13 X10^3/ul (0.83-4.51); Lymphocyte % 17.6 % (19-41); Mean Corp Hgb Conc 33.4 g/dL (32-36); Mean Corpuscular Hgb 28.3 pg (27.0-32.0); Mean Corpuscular Volume 84.8 fL (80-94); Mean Platelet Vol. 10.8 fl (6.2-12.0); Monocyte# 0.69 X10^3/uL; Monocyte% 5.7 % (0-10); NRBC Flagged by Analyzer 0 % (0-5); Neutrophil # 9.17 X10^3/uL (2.7-7.7); Neutrophil % 75.6 % (47-70); Platelet Count 333 K/mm3 (150-450); RBC Distribution Width CV 13.6 % (11.6-14.6); RBC Distribution Width SD 42.2 fl (35.1-43.9); Red Blood Count 5.54 M/mm3 (4.6-6.2); White Blood Count 12.1 K/mm3 (4.4-11.0)
[2024-04-13 10:10] LABS: ALB/GLOB Ratio 0.8 RATIO (0.9-2.4); AST(SGOT) 50 U/L (15-37); Alanine Aminotransfer ALT/SGPT 78 U/L (16-61); Albumin, Serum 3.5 g/dL (3.2-5.0); Alkaline Phosphatase 124 U/L (45-117); Anion Gap 7 (5-15); BUN 16 mg/dL (7-18); Calcium,Total 8.7 mg/dL (8.5-10.1); Chloride 108 mmol/L (98-107); EST Glomerular Filtration Rate 88 mL/min (>60); Est Glom Filt Rate - Afr Amer 107 mL/min (>60); Ferritin 233 ng/mL (26-388); Globulin 4.2 g/dL (2.2-4.2); Glucose 209 mg/dL (74-106); Iron 86 ug/dL (65-175); Iron Binding Capacity,Total 313 ug/dL (250-450); LDH 152 U/L (87-241); PERCENT IRON SATURATION 27.5 % (15.0-55.0); Potassium 3.7 mmol/L (3.5-5.1); Protein, Total 7.7 g/dL (6.4-8.2); Rheumatoid Factor < 10.0 IU/mL (<15); Sodium Level 138 mmol/L (136-145)
[2024-04-13 10:13] LABS: Hemoglobin A1c 6.2 % (3.8-5.6)
[2024-04-16 10:42] LABS: ACCA 22 units (0-90); ALCA 2 units (0-60); AMCA 27 units (0-100); Angiotensin Convert Enzyme < 15 U/L (14-82); Anti-Smooth Muscle ABS 5 Units (0-19); CCP IgG Antibodies 5 units (0-19); Ceruloplasmin 33.1 mg/dL (16.0-31.0); Copper, Serum or Plasma 87 ug/dL (69-132); Cytoplasmic Ab (C-ANCA) <1:20 titer (Neg:<1:20); Endomysial Antibody IgA Negative (Negative); HEPATITIS B SURFACE AG Negative (Negative); Hep C Antibodies Non Reactive (Non Reactive); Hepatitis A IgM Antibody Negative (Negative); Hepatitis B Core AB IgM Negative (Negative); IgG, Quant 1264 mg/dL (603-1613); Immunoglobulin A 152 mg/dL (90-386); Immunoglobulin G, Subclass 1 555 mg/dL (248-810); Immunoglobulin G, Subclass 2 510 mg/dL (130-555); Immunoglobulin G, Subclass 3 91 mg/dL (15-102); Immunoglobulin G, Subclass 4 87 mg/dL (2-96); Perinuclear Ab (P-ANCA) <1:20 titer (Neg:<1:20); QNTFERON TB Mitogen Value > 10.00 IU/mL (.); QNTFERON TB Nil Value 0 IU/mL (.); QNTFERON TB1+ Ag Value 0 IU/mL (.); QNTFERON TB2+ Ag Value 0 IU/mL (.); QNTIFERON TB Positive Criteria Negative (Negative); gASCA 8 units (0-50); t-Transglutaminase IgA <2 U/mL (0-3)
[2024-04-19 17:08] LABS: Anti-Centromere B Ab <0.2 AI (0.0-0.9); Anti-Chromatin <0.2 AI (0.0-0.9); Anti-Jo <0.2 AI (0.0-0.9); Anti-Mitochondrial AB <20.0 Units (0.0-20.0); Anti-Scleroderma-70 AB <0.2 AI (0.0-0.9); Anti-dsDNA Ab <1 IU/mL (0-9); Beef <0.10 kU/L (Class 0); Chocolate <0.10 kU/L (Class 0); Codfish <0.10 kU/L (Class 0); Corn 0.45 kU/L (Class I); Egg, Whole <0.10 kU/L (Class 0); Milk (Cow) <0.10 kU/L (Class 0); Mussels 0.27 kU/L (Class 0/I); Peanut 0.86 kU/L (Class II); Pork <0.10 kU/L (Class 0); RNP Ab <0.2 AI (0.0-0.9); SJOGREN'S Anti-SS-A test < 0.2 AI (0.0-0.9); SJOGREN'S Anti-SS-B test 0.2 AI (0.0-0.9); Salmon <0.10 kU/L (Class 0); Shrimp 0.13 kU/L (Class 0/I); Smith Ab <0.2 AI (0.0-0.9); Tuna <0.10 kU/L (Class 0); Wheat 0.73 kU/L (Class II)
== END | disposition home or self-care (01) ==
LOC: LAB 09:01
PROVIDERS: PCP Family Medicine; Referring Provider Student in an Organized Health Care Education/Training Program; Visit Provider Student in an Organized Health Care Education/Training Program
DX: K65.4 Sclerosing mesenteritis (principal)
CPT/HCPCS: 36415; 80053; 80074; 82164; 82390; 82525; 82728; 82784; 82787; 83036; 83516; 83540; 83550; 83615; 85025; 85652; 86003; 86005; 86036; 86140; 86200; 86225; 86235; 86255; 86256; 86431; 86480; 86671

== ENCOUNTER 2024-08-09 00:09 | Emergency (ER) | payer BC, SELFPAY ==
[2024-08-09 00:10] VITALS: BP 132/72; PULSE 73; RESP 18; TEMP 36.4; O2SAT 93; BMI 45.4
--- NOTE | 2024-08-09 00:33 | EDS_ITS ---
HPI History of Present Illness Chief Complaint: Back Informant: patient Onset/Context/Timing Onset: Today Context: Gradual Onset Timing: Continuous Quality: Sharp Location: Lumbar Current Severity: Mild Maximum Severity: Moderate Worsened by: improves with Nothing Relieved by: Nothing Associated Symptoms Associated Symptoms: Negative for Numbness, Tingling, Radiation to Right Leg, Radiation to Left Leg, Fever, Abdominal Pain, Dysuria, Unable to Ambulate, Unable to Transfer, Urinary Retention, Urinary Incontinence, Constipation or Fecal Incontinence Narrative Narrative: 38-year-old male history diabetes and hypertension. 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 Progressively got worse. He took a Robaxin which she gets because he occasionally gets back soreness and what he thinks is muscle spasm. He is not typically not had pain like this before. He has never had any back surgery. He denies any fall or trauma recently. He denies any fever. No bowel or bladder incontinence or retention. No weakness or radiation to his legs. He said initially got better after he took the Robaxin and now it is worse again. He is able to ambulate. Prior similar symptoms: No Recent Illness/Hospitalization: No [facility] Medical History HTN (hypertension) OCD (obsessive compulsive disorder) Diabetes Home Medications ?Medication ?Instructions ?Recorded ?Last Taken ?Type prednisone 10 mg tablet 40 mg (4 x 10 mg) PO DAILY 30 days 04/11/24 Unknown Rx #120 tabs prednisone 20 mg tablet 40 mg (2 x 20 mg) PO DAILY 7 days 08/09/24 Unknown Rx #14 tabs Allergy/AdvReac Type Severity Reaction Status Date / Time acetaminophen (From Vicodin) Allergy Severe Other Verified 04/11/24 20:39 hydrocodone (From Vicodin) Allergy Severe Other Verified 04/11/24 20:39 morphine Allergy Severe OTHER Verified 04/11/24 20:39 naproxen Allergy Severe Other Verified 04/11/24 20:39 Surgical History History of excision of pilonidal cyst History of herniorrhaphy Hx of cholecystectomy Hx of tonsillectomy Social History household members: spouse Smoking Status: Never smoker ROS ROS ED ROS Narrative Low back pain. No recent illness. No recent fever. Constitutional Constitutional ED: Denies chills or fever(s) Eyes Eyes: Denies blurry vision ENT ENT ED: Denies ear pain Cardiovascular Cardiovascular: Denies chest pain Respiratory/Chest Respiratory/Chest: Denies dyspnea Gastrointestinal Gastrointestinal: Denies abdominal pain Genitourinary Genitourinary ED: Denies dysuria or hematuria Musculoskeletal Musculoskeletal: Reports back pain; Denies arthralgias, myalgias or neck pain Integumentary Denies abscess or Abrasions Neurologic Neurologic: Denies headache(s) Psychiatric Psychiatric: Denies anxiety or depression Endocrine Endocrinology: Denies cold intolerance Hematologic/Lymphatic Hematologic/Lymphatic: Denies easy bleeding Allergic/Immunologic Allergic/Immunologic ED: Denies mouth swelling EXAM Physical Exam Narrative Exam Narrative: Well-appearing 38-year-old male. Lying in bed. Vital signs are stable afebrile. H EENT exam unremarked. Neck nontender. Lungs clear to auscultation bilateral. Heart regular rhythm no murmur. Rate about 70. Chest wall ribs nontender. Abdomen soft nontender. No pulsatile mass. No peritoneal signs. Moving all 4 extremities. Neurovascular intact. 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 Dorsi plantarflexion intact. Negative straight leg raise bilaterally. But he does have worse pain in his back primary lift in his left leg. He has normal dorsi and plantarflexion. Normal medial thigh and bilateral lower extremity sensation. No cauda equina or saddle anesthesia. Back exam he has reproducible pain over the midline of his lumbar spine around L2-3. There is no redness or warmth. There is no bruising. There is no discoloration. He has paraspinal musculature in both the thoracic and lumbar spine are nontender. His SI joints are nontender. Neurologically he is awake and alert. Good motor strength and sensation bilaterally. No focal motor or sensory deficits. Const Vital Signs: 08/09/24 00:10 Temperature 97.6 F L Temperature Source Oral Pulse Rate 73 Respiratory Rate 18 Blood Pressure 132/72 H Blood Pressure Mean 92 Pulse Ox 93 Oxygen Delivery Method Room Air Positive well nourished and well developed; Negative for cachectic, contractures or unkempt General Appearance ED: well developed and NAD; Negative for unkempt, cachectic, contractures or pallor Nutritional Appearance: Negative for cachectic HEENT Reports moist mucous membranes Negative for trauma or tenderness Eyes PERRL and EOMs intact bilaterally General Eye ED: Negative for pale conjunctiva or scleral icterus Neck no lymphadenopathy, supple and no JVD Resp normal respiratory effort and clear to auscultation bilaterally Effort and Inspection: Negative for pain with movement Auscultation: Negative for rales, rhonchi or wheezes Cardio regular rate, regular rhythm, S1 normal heart sound, S2 normal heart sound and no murmurs GI normal to inspection, nondistended, normoactive bowel sounds, soft to palpation, non-tender, non-distended and no masses Inspection: Negative for abdominal distention Palpation: Negative for tender, guarding or rebound tenderness present Back/Spine Negative for normal to inspection or no thoracic nor lumbar tenderness Back/Spine Narrative: Lumbar tenderness around L2-3. No redness or discoloration. No bruising. No signs of trauma. No warmth. No SI joint tenderness. Cervical Spine: Negative for cervical spine tenderness and Negative for paracervical muscle tenderness Thoracic Spine / Upper Back: Negative for paraspinal muscle tenderness Lumbar Spine / Lower Back: straight leg raise negative bilaterally; Negative for ROM limited Extremity normal to inspection and no clubbing, cyanosis or edema General Extremety ED: Negative for edema or tenderness General Extremity: Negative for edema Neuro oriented x3 and no sensory deficits noted Sensorium / Orientation: alert; Negative for confused, lethargic or stuporous Motor Exam: strength 5/5 throughout Psych mental status grossly normal Appearance: Negative for unkempt Mood & Affect: Negative for depressed, sad or tearful Skin no rashes or lesions noted and no wounds General Skin Exam: Negative for jaundice or pallor Lesions: No lesion noted Rashes: No rashes noted Trauma: Negative for abrasion or puncture MDM MDM MDM Narrative Medical decision making narrative: 38-year-old male with lumbar back pain. This could be secondary to degenerative disc disease or bulging disc. He has no muscle weakness or loss of sensation in his lower extremities. There is no signs of cauda equina. He had no fall or trauma. He does not need any plain x-rays and does not meet any criteria for an acute MRI. He will be started on prednisone 40 mg a day. We discussed pain treatment options he did not want pain meds will use Tylenol and Motrin. Follow-up with his primary care physician if not improving for further evaluation and possible MRI. Discharge Plan Triage Chief Complaint: Back ED Provider: Rohit Franco Dx/Rx/DC Orders Clinical Impression: Back pain Instructions: ED Back Pain (Acute or Chronic) Prescriptions: New prednisone 20 mg tablet 40 mg PO DAILY 7 Days Qty: 14 0RF No Action prednisone 10 mg tablet 40 mg PO DAILY 30 Days Qty: 120 0RF Primary Care Provider: Reba Leyva Referrals: Reba Leyva MD [Primary Care Provider] - 1 Week if not improving Activity Restrictions/Additional Instructions: This is either a disc in your lower back lumbar disc or potentially strain of your lower back or muscle spasm. Exam james it is really not consistent with a muscle spasm becomes midline. Alternate Motrin and Tylenol for pain. The steroid prednisone 40 mg a day for 1 week. Follow-up with your primary care physician if not improving you may have to consider an MRI. Plain films do not evaluate the discs of the spinal cord. Return to the emergency department if worsening pain, fever or bowel or bladder incontinence or your getting weak in your lower extremities. Print Language: Kiswahili Disposition Disposition: Home, Self Care
[2024-08-09] MEDS: predniSONE 20 MG Tablet 60 MG PO (00:42)
[2024-08-09 00:44] VITALS: BP 130/75; PULSE 72; RESP 18; TEMP 36.7; O2SAT 100
== END 2024-08-09 00:45 | disposition home or self-care (01) ==
LOC: ED 00:37
PROVIDERS: Emergency Provider Emergency Medicine; PCP Family Medicine; Visit Provider Emergency Medicine
DX: M54.9 Dorsalgia, unspecified (principal); E11.9 Type 2 diabetes mellitus without complications
CPT/HCPCS: 99282

== ENCOUNTER → 2025-04-29 | Outpatient (CLI) | payer OTHER, SELFPAY ==
--- OUTSIDE RECORDS SUMMARY | 2025-04-29 11:33 | XMS RPT_ITS | CCD ---
Author Organization [facility] Care Team Providers [employer] Transactions Attorney Name Role Phone Brock Dent MD Primary Care Provider PHYSICIAN, NOT RECORDED Primary Care Physician Brock Mohan MD Primary Care Provider BROCK DENT Primary Care Unavailable MARCY CRAIG Referring Unavailable Brock Dent MD Primary Care Provider PHYSICIAN, NOT RECORDED Primary Care Unavailemil DENT MD, DR MEYER Attending Unavailab beti DENT MD, DR MEYER Admitting UnavailBROCK Staples Primary Care Unavailable OLIMPIA ALBARRAN Attending Unavailable BROCK DENT Referring Unavailable BROCK DENT Primary Care Unavailable Brock Dent MD Primary Care Provider BROCK DENT Primary Care Unavailable REBA LEYVA Attending Unavailable PHYSICIAN, NOT RECORDED Primary Care UnavailDr. Reba Leone MD Primary Care Provider Dr. Reba Leyva MD Referring Provider Servando REED-Sofía Green Attending Provider [phone] Reba Leyva Referring Unavailable Reba Leyva Primary Care Unavailable Sofía Al Attending Unavailable Reba Kenyon Referring Unavailable Reba Kenyon Primary Care Unavailable Dinorah Reid Attending Unavailable Reba Leyva Primary Care Unavailable Rohit Franco Attending Unavailable Reba Leyva Referring Unavailable Reba Leyva Attending Unavailable Reba Leyva Primary Care Unavailable Allergies Allergy Classification Reported Allergen(s) Allergy Type Date of Onset Reaction(s) Facility (7 sources) Morphine; Translations: [MORPHINE] Drug Allergy 7 Shortness Of Breath [facility] Comment on above: PRESSURE AROUND NECK (7 sources) Naproxen; Translations: [NAPROXEN] Drug Allergy 7 Other (See Comments), Other: See Comments [facility] Work Phone: Comment on above: PATIENT STATES THAT HE WAS BLACKING OUT (5 sources) Acetaminophen / HYDROcodone; Translations: [HYDROCODONE-ACET AMINOPHEN] Drug Allergy 3 GI Upset [facility] (1 source) Acetaminophen Drug Allergy 5 Other [facility] Comment on above: GUM AND MOUTH START TO TINGLE. (1 source) HYDROcodone Drug Allergy 5 Other [facility] Comment on above: GUM AND MOUTH START TO TINGLE. (1 source) Acetaminophen Drug Allergy 5 [facility] Repository (1 source) HYDROcodone Drug Allergy 5 [facility] Repository (1 source) Morphine Drug Allergy 5 [facility] Repository (1 source) Naproxen Drug Allergy 5 [facility] Repository Medications Current Medications Medication Drug Class(es) Dates Sig (Normalized) Sig (Original) allopurinol 100 mg oral tablet (4 sources) Xanthine Oxidase Inhibitor Start: 12-26-2022 take 1 tablet by mouth once daily allopurinol (ZYLOPRIM) 100 mg tablet Take 100 mg by mouth once daily. 12/26/2022 Active ALLOPURINOL PO T alanna by mouth 0 Active Comment on above: Take 100 mg by mouth once daily. Amitriptyline (1 source) Tricyclic Antidepressant Amitriptyline HCl (ELAVIL PO) Take by mouth 0 Active dextromethorphan hydrobromide 3 mg/ml / promethazine hydrochloride 1.25 mg/ml oral solution (1 source) Phenothiazine, Uncompetitive W-ekhypp-P-aspartate Receptor Antagonist, Sigma-1 Agonist Start: 025 take 3 mL by mouth four times daily as needed Promethazine-DM (PHENERGAN-DM) 6.25-15 mg/5 mL syrup Indications: Flu-like symptoms , Acute cough Take 3 mL by mouth four times a day as needed. 118 mL 11/14/2024 Active DULoxetine 20 mg delayed release oral capsule (3 sources) Serotonin and Norepinephrine Reuptake Inhibitor Start: 03-13-2 023 DULoxetine (CYMBALTA) 20 mg capsule TAKE 1 CAPSULE IN THE MORNING and TAKE 2 CAPSULES IN THE EVENING 11/17/2022 Active Comment on above: TAKE 1 CAPSULE IN MORNING and TAKE 2 CAPSULES IN THE EVENING indomethacin 50 mg oral capsule (3 sources) Nonsteroidal Anti-inflammatory Drug Start: take 1 capsule by mouth three times daily indomethacin (INDOCIN) 50 mg capsule Take 50 mg by mouth three times daily. 12/22/2022 Active Comment on above: Take 50 mg by mouth three times daily. lansoprazole 15 mg delayed release oral capsule (4 sources) Proton Pump Inhibitor Start: take 1 capsule by mouth once daily lansoprazole (PREVACID) 15 mg capsule Take 15 mg by mouth once daily. 11/17/2022 Active Lansoprazole ([place] EVACID PO) Take by mouth 0 Active Comment on above: Take 15 mg by mouth once daily. predniSONE 10 mg oral tablet (3 sources) Start: 11-14-2024 End: 11-23-2024 take 3 tablets by mouth once daily, then take 2 tablets by mouth once daily, then take 1 tablet by mouth once daily predniSONE (DELTASONE) 10 mg tablet Indications: Flu-like symptoms , Acute cough Take 3 tablets by mouth once daily for 3 days, THEN 2 tablets once daily for 3 days, THEN 1 tablet once daily for 3 days. 18 tablet 11/14/2024 11/23/2024 Active Start: 08-09-2024 take 2 tablets by [facility] once daily Prednisone 20 mg tablet Active 40 mg PO DAILY 14 7 0 August 09, 2024 1:00am Start: 04-11-2024 take 4 tablets by [facility] once daily Prednisone 10 mg tablet Active 40 mg PO DAILY 120 30 0 April 11, 2024 12:00am Problems Active Problems Problem Classification Problem Date Documented Da te Episodic/Chronic Abdominal pain (1 source) Acute abdominal pain; Translations: [Unspecified abdominal pain] 04-19-2024 Episodic Cardiac dysrhythmias (5 sources) Cardiac arrhythmia; Translations: [Cardiac arrhythmia, unspecified] Onset: 03-24-2024 03-24-2024 Chronic Cardiac dysrhythmias (1 source) ECG: sinus tachycardia; Translations: [Tachycardia, unspecified] 04-19-2024 Episodic Diabetes mellitus with complications (1 source) Hyperglycemia due to type 2 diabetes mellitus; Translations: [Type 2 diabetes mellitus with hyperglycemia] 02-20-2024 Chronic Diabetes mellitus without complication (1 source) Diabetes mellitus; Translations: [Type 2 diabetes mellitus without complications] 03-25-2024 Chronic Essential hypertension (1 source) Hypertensive disorder; Translations: [Essential (primary) hypertension] 03-25-2024 Chronic Fluid and electrolyte disorders (1 source) Dehydration; Translations: [Dehydration] 04-19-2024 Episodic Nonspecific chest pain (2 sources) Left sided chest pain; Translations: [Chest pain, unspecified] 02-20-2024 Episodic Other circulatory disease (1 source) H/O: hypertension; Translations: [Personal history of other diseases of the circulatory system] 02-20-2024 Episodic Other gastrointestinal disorders (1 source) Diarrhea; Translations: [Diarrhea, unspecified] 04-19-2024 Episodic Other liver diseases (3 sources) Steatosis of liver; Translations: [Fatty (change of) liver, not elsewhere classified] Chronic Other liver diseases (4 sources) Fatty (change of) liver, not elsewhere classified; Translations: [Fatty metamorphosis of liver] Onset: 01-02-2023 Chronic Other lower respiratory disease (1 source) Cough; Translations: [Acute cough] 11-14-2024 Episodic Other screening for suspected conditions (not mental disorders or infectious disease) (3 sources) Other specified abnormal findings of blood chemistry; Translations: [Other abnormal blood chemistry] Onset: 01-02-2023 Episodic Peritonitis and intestinal abscess (1 source) Sclerosing mesenteritis; 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] 04-19-2024 Episodic Residual codes; unclassified (1 source) Obstructive sleep apnea syndrome; Translations: [Obstructive sleep apnea (adult) (pediatric)] 02-12-2024 Chronic Residual codes; unclassified (1 source) Viral syndrome; Translations: [Other general symptoms and signs] 11-14-2024 Episodic Past or Other Problems Problem Classification Problem Date Documented Da te Episodic/Chronic Spondylosis; intervertebral disc disorders; other back problems (2 sources) Backache; Translations: [Dorsalgia, unspecified] Onset: 09-08-2024 08-17-2024 Episodic Results Test Name Value Interpretation Reference Range Facility Gastroenterology Visit Repor ton 03-17-2025 Gastroenterology Visit Report [facility] [address] [place] [place] [address] OFFICE VISIT Date of Service: 03/17/25 MR#: [id number] Acct: [id number] Name: JATINDER XIONG Rep #: [id number] : 1985 Provider: EDY clark Age/Sex: 39/M Location: [facility] Status: Signed Intake Vital Signs 08/09/24 00:10 03/13/25 12:15 Height 6 ft 4 in 6 ft 4 in Intake Visit Reasons: FOLLOW UP Allergies acetaminophen (From Vicodin) Allergy (Severe, Verified 03/17/25 15:41) Other hydrocodone (From Vicodin) Allergy (Severe, Verified 03/17/25 15:41) Other morphine Allergy (Severe, Verified 03/17/25 15:41) OTHER naproxen Allergy (Severe, Verified 03/17/25 15:41) Other Medications ???Medication ???Instructions ???Recorded ???Confirmed ???Type prednisone 10 mg tablet 40 mg (4 x 10 mg) PO DAILY 30 days 04/11/24 03/17/25 Rx #120 tabs prednisone 20 mg tablet 40 mg (2 x 20 mg) PO DAILY 7 days 08/09/24 03/17/25 Rx #14 tabs PFSH Medical History HTN (hypertension) OCD (obsessive compulsive disorder) Diabetes Surgical History History of excision of pilonidal cyst History of herniorrhaphy Hx of cholecystectomy Hx of tonsillectomy Social History household members: spouse Smoking Status: Never smoker HPI HPI Details: JATINDER XIONG, is a 39 M who presents to the office today for FU. 04.13.24 [facility] established s/p ER for sclerosing mesenteritis. We will order autoimmune work up with LYNETTE, ANCA, IBD sgi, celiac panel, RF, anti ccp, IgG subclasses, ESR, CRP, CBC and CMP. 03.17.25 OV Reports stopping Mounjaro. Only complains of joint pains and stiffness. States that he will go through cycles of feeling well for about 6 weeks and then feel very fatigued and depressed while simultaneous note increased joint stiffness, swelling in his ankles, heat, pain and redness in his knees and hips. He notes calcification deposits on his fingers near knuckles. States I must have an autoimmune disorder, there's no other explanation. I reviewed lab results with him again. He denies GI concerns at this time. ROS Const Constitutional: Positive for fatigue; No fever(s) or weight change Eyes Eyes: No change in vision ENT ENT: No abnormal hearing or difficulty swallowing Resp Respiratory: No cough Cardio Cardiology: Positive for leg pain with exertion; No chest pain at rest or chest pain with exertion Gastro GI: Positive for constipation and diarrhea; No abdominal pain, belching, bloating, change in bowel habits, change in stool character, coffee ground emesis, cramping, heartburn, difficulty swallowing, feeling full early, excessive flatus, in continent of stools, Vomiting blood/hematemesis, Blood in stool, loose stools, Black,tarry stools, nausea/dyspepsia, pain with swallowing, vomiting or other Musc Musculoskeletal: Positive for joint pain, joint swelling, myalgias, stiffness, Arthritis and leg pain with exertion Skin Skin: No yellowing of the eye or itchy eyes Neuro Neurology: No abnormal hearing Psych Psychiatric: No anxiety and No depression Endo Endocrine: Positive for fatigue; No cold intolerance, heat intolerance or weight change Aller/Imm Allergy/Immunologic: No food intolerance or itchy eyes Kam/Lymp Hematologic/Lymphatic: No easy bleeding or easy bruising Exam Const General: cooperative, healthy appearing, comfortable and no acute distress Nutritional Appearance: overweight Orientation: alert and oriented x3 [facility] Head: normal to inspection Ears: hearing grossly normal bilaterally Eyes General: appearance normal, both eyes and all related structures Sclera: sclerae normal Neck Neck: normal visual inspection and full ROM Chest Chest palpation inspection: normal inspection of the chest Resp Effort Inspection: normal respiratory effort, able to speak in complete sentences and symmetric chest movement GI Inspection: obesity Skin General: erythema (face) Lesions: no lesions Rashes: no rashes Trauma: no lacerations or abrasions Neuro General: patient alert, patient oriented x3 and moves all extremities Cognition: normal cognition Speech: speech normal Gait: normal gait Extrem General: full ROM Psych Appearance: well kempt Mental Status: mental status grossly normal Mood: congruent mood Judgment: judgment good Assessment and Plan Assessment and Plan (1) Arthralgia: Status: Chronic Qualifiers: Joint pain location: unspecified Qualified Code(s): M25.50 - Pain in unspecified joint Plan JATINDER XIONG, is a 39 M who presents to the office today for FU. Only complains of joint pains and stiffness. States that he will go thro (more content not included)... Normal [facility] LIPIDon 12-15-2024 Cholesterol [Mass/Vol] 186 mg/dL Normal 0-200 [facility] Comment on above: Result Comment: Chol esterol Reference Interval: Less than 200 Desirable 200-239 Borderline high risk 240 and above High risk Performed By: #### L IPID #### [address] [address] Cholesterol in HDL [Mass/Vol] 44 mg/dL Normal 40-60 [facility] Comment on above: Performed By: #### L IPID #### [address] [address] Cholesterol in LDL [Mass/Vol] 114 mg/dL Normal 0-130 [facility] Comment on above: Performed By: #### L IPID #### [address] [address] Triglyceride [Mass/Vol] 142 mg/dL Normal 0-150 [facility] Comment on above: Result Comment: Trig lyceride Reference Interval: Less than 150 Normal 150-199 Borderline high risk 200-499 High risk 500 or higher Very high risk Performed By: #### L IPID #### [address] [address] MALBRon 12-15-2024 U Creatinine 127.0 mg/dL Normal [facility] Comment on above: Performed By: #### M ALBR #### [address] [address] U Microalb 4.0 mg/L Normal [facility] Comment on above: Performed By: #### M ALBR #### [address] [address] U Ratio Alb/Cre 3 mg/G Normal 0-30 [facility] Comment on above: Performed By: #### M ALBR #### [facility] [address] [place], [place] [address] CNOVon 11-14-2024 CNOV Office Visit (WALKWA ) JATINDER XIONG ([id number]) 1985 M Date Time Provider Department 11/14/24 1:45 PM TOM TATUM During your visit today, we recorded the following information about you: Temperature Pulse Respiration Blood pressure 97.5 degrees 92/minute 18/minute 118/86 Weight Height 163.2 kg 1.905 m Tom Tatum APRN.LATHE SET UP OPERATOR 11/14/2024 2:30 PM Signed This note was created using [employer]. Subjective Jatinder Xiong is a 38 year old male. HPI by patient: Jatinder is a 38 year old presenting to the office with the complaint of flu like symptoms that started last but getting worse Started approximately last week Associated symptoms include cough, bubbling in chest, severe nausea, scratchy throat, congestion, bubbling in ears. Has hx of ischemic mesentary issues and bowel blockages d/t Denies any other concerns Covid Immunization Dates Current Care Gaps Covid-19 Vaccine ( season) Never done No completion, postpone, frequency change, or communication history exists for this topic. Sick contacts: no Smoking history/second hand smoke: no OTC mucinex, tylenol, and dramamine NO antibiotic use in the last 60 days. ALLERGIES Morphine Shortness of Breath Naproxen Other: See Comments Vicodin [Hydrocodon* GI Upset Family History Reviewed Including Cardiac Diseases, Psychiatric Diseases, AND Substance Abuse Problem: Colon Cancer Relation: No Family History Age of Onset: (Not Specified) Social History Tobacco Use Smoking status: Never Smokeless tobacco: Never Alcohol use: Never Drug use: Never Review of Systems Constitutional: Positive for chills and fatigue. Negative for fever. HENT: Positive for congestion, ear pain and sore throat. Negative for rhinorrhea. Respiratory: Positive for cough and wheezing. Cardiovascular: Negative for chest pain. Gastrointestinal: Positive for nausea. Allergic/Immunologic: Negative for immunocompromised state. Neurological: Negative for headaches. Hematological: Negative for adenopathy. Objective BP 118/86 (BP Site: Right Arm, BP Position: Sitting, BP Cuff Size: Large Adult) Pulse 92 Temp 36.4 ?C (97.5 ?F) (Left Tympanic) Resp 18 Ht 190.5 cm (6' 3) Wt (!) 163.2 kg (359 lb 10.9 oz) SpO2 95% BMI 44.96 kg/m? Physical Exam Vitals reviewed. Constitutional: Appearance: Normal appearance. HENT: Head: Normocephalic. Nose: Congestion present. No rhinorrhea. Mouth/Throat: Pharynx: No oropharyngeal exudate or posterior oropharyngeal erythema. Pulmonary: Effort: Pulmonary effort is normal. No respiratory distress. Breath sounds: Normal breath sounds. No stridor. No wheezing, rhonchi or rales. Chest: Chest wall: No tenderness. Musculoskeletal: General: Normal range of motion. Cervical back: Full passive range of motion without pain. Skin: General: Skin is warm. Neurological: Mental Status: He is alert. Psychiatric: Behavior: Behavior is cooperative. Assessment and Plan ASSESSMENT/PLAN: 1. Flu-like symptoms - ICD9: 780.99, ICD10: R68.89 (primary diagnosis) - PREDNISONE 10 MG TABLET - PROMETHAZINE-DM 6.25 MG-15 MG/5 ML ORAL SYRUP 2. Acute cough - ICD9: 786.2, ICD10: R05.1 - PREDNISONE 10 MG TABLET - PROMETHAZINE-DM 6.25 MG-15 MG/5 ML ORAL SYRUP Tom Tatum APRN.CNP Medical Decision Making: Problems: Moderate: New problem with uncertain prognosis Data: Unique source(s) for external note(s) reviewed: 1 Risk: Moderate: Drug management Medical Decision Making Level: 4 - Moderate Tom Tatum APRN.CNP 11/14/2024 2:29 PM Signed UPPER RESPIRATORY INFECTIONS Most cases are caused by viruses and most cases are mild, temporary, and harmless. Symptoms can last 2 to 3 weeks and can include: nasal congestion, sore throat, coughing, muscles aches, headaches, nausea, diarrhea, fatigue and fever. Rhinovirus, RSV, Covid, Influenza A and B, Parainfluenza are just a few COMMON respiratory viruses that cause sinus symptoms and cough. Antibiotics do NOT treat viruses. Taking 1 round of antibiotics can destroy your gut normal ashtyn (good bacteria) for up to 6 months. This can affect your weight, skin, digestion, mental health and immune system. 1. Drink plenty of fluids. 2. Get lots of rest. 3. Avoid dehydrants such as caffeine and alcohol. 4. Nasal saline is an effective decongestant and be used frequently throughout the day. 5. To loosen phlegm and help coughing, drink plenty of fluids and using a humidifier. 6. For sore throats, it is ok to use cough drops, throat sprays, or gargling warm salt water. 7. Always cover your mouth when you cough or sneeze, and wash your hands frequently. Avoid crowded areas like shopping centers, movies while you are (more content not included)... Normal [facility] Emergency Department Summary on 08-09-2024 Emergency Department Summary [facility] Medical Records Department [address] [place] [address] Emergency Department Summary 08/09/24 MR#: [id number] Acct: [id number] Name: JATINDER XIONG Rep #: [id number] : 1985 38 From: Rohit Franco MD PCP: Dr. Reba Leyva MD Status:REG ER Location: ED HPI History of Present Illness Chief Complaint: Back Informant: patient Onset/Context/Timing Onset: Today Context: Gradual Onset Timing: Continuous Quality: Sharp Location: Lumbar Current Severity: Mild Maximum Severity: Moderate Worsened by: improves with Nothing Relieved by: Nothing Associated Symptoms Associated Symptoms: Negative for Numbness, Tingling, Radiation to Right Leg, Radiation to Left Leg, Fever, Abdominal Pain, Dysuria, Unable to Ambulate, Unable to Transfer, Urinary Retention, Urinary Incontinence, Constipation or Fecal Incontinence Narrative Narrative: 38-year-old male history diabetes and hypertension. 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 Progressively got worse. He took a Robaxin which she gets because he occasionally gets back soreness and what he thinks is muscle spasm. He is not typically not had pain like this before. He has never had any back surgery. He denies any fall or trauma recently. He denies any fever. No bowel or bladder incontinence or retention. No weakness or radiation to his legs. He said initially got better after he took the Robaxin and now it is worse again. He is able to ambulate. Prior similar symptoms: No Recent Illness/Hospitalizatio n: No PFSH [facility] Medical History HTN (hypertension) OCD (obsessive compulsive disorder) Diabetes Home Medications ???Medication ???Instructions ???Recorded ???Last Taken ???Type prednisone 10 mg tablet 40 mg (4 x 10 mg) PO DAILY 30 days 04/11/24 Unknown Rx #120 tabs prednisone 20 mg tablet 40 mg (2 x 20 mg) PO DAILY 7 days 08/09/24 Unknown Rx #14 tabs Allergy/AdvReac Type Severity Reaction Status Date / Time acetaminophen (From Vicodin) Allergy Severe Other Verified 04/11/24 20:39 hydrocodone (From Vicodin) Allergy Severe Other Verified 04/11/24 20:39 morphine Allergy Severe OTHER Verified 04/11/24 20:39 naproxen Allergy Severe Other Verified 04/11/24 20:39 Surgical History History of excision of pilonidal cyst History of herniorrhaphy Hx of cholecystectomy Hx of tonsillectomy Social History household members: spouse Smoking Status: Never smoker ROS ROS ED ROS Narrative Low back pain. No recent illness. No recent fever. Constitutional Constitutional ED: Denies chills or fever(s) Eyes Eyes: Denies blurry vision ENT ENT ED: Denies ear pain Cardiovascular Cardiovascular: Denies chest pain Respiratory/Chest Respiratory/Chest: Denies dyspnea Gastrointestinal Gastrointestinal: Denies abdominal pain Genitourinary Genitourinary ED: Denies dysuria or hematuria Musculoskeletal Musculoskeletal: Reports back pain; Denies arthralgias, myalgias or neck pain Integumentary Denies abscess or Abrasions Neurologic Neurologic: Denies headache(s) Psychiatric Psychiatric: Denies anxiety or depression Endocrine Endocrinology: Denies cold intolerance Hematologic/Lymphatic Hematologic/Lymphatic: Denies easy bleeding Allergic/Immunologic Allergic/Immunologic ED: Denies mouth swelling EXAM Physical Exam Narrative Exam Narrative: Well-appearing 38-year-old male. Lying in bed. Vital signs are stable afebrile. H EENT exam unremarked. Neck nontender. Lungs clear to auscultation bilateral. Heart regular rhythm no murmur. Rate about 70. Chest wall ribs nontender. Abdomen soft nontender. No pulsatile mass. No peritoneal signs. Moving all 4 extremities. Neurovascular intact. 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 Dorsi plantarflexion intact. Negative straight leg raise bilaterally. But he does have worse pain in his back primary lift in his left leg. He has normal dorsi and plantarflexion. Normal medial thigh and bilateral lower extremity sensation. No cauda equina or saddle anesthesia. Back exam he has reproducible pain over the midline of his lumbar spine around L2-3. There is no redness or warmth. There is no bruising. There is no discoloration. He has paraspinal musculature in both the thoracic and lumbar spine are nontender. His SI joints are nontender. Neurologically he is awake and alert. Good motor strength and sensation bilaterally. No focal motor or sensory deficits. Const Vital Signs: 08/09/24 00:10 Temperature 97.6 F L Temperature Source Oral Pulse Rate 73 Respiratory Rate 18 Blood Pressure 132/72 H Blood Pressure Mean 9 (more content not included)... Normal [facility] Cardiac event monitor (30 da ys)on 05-01-2024 The patient wore continuous telemetry for 7 days 22 hours and 39 minutes. The rhythm was sinus averaging 80 bpm with a minimum of 55 and a maximum of 136. There were 9 transmissions for symptoms such as chest pain and pressure, rapid and fast heartbeat, fatigue, flutter or skipped beats, and combinations thereof. During 5 transmissions, ectopy was noted in the form of single premature ventricular contractions numbering 2-8/min. There were 1165 PVCs for a burden of less than 1%. There were 110 PACs for burden of less than 1%. No atrial fibrillation was seen. Summary: Continuous telemetry demonstrates sinus rhythm averaging 80 bpm with rare atrial and occasional ventricular ectopy. Symptoms mostly occurred secondary to the PVCs with an overall low burden. CV EPIPHANY Cardiac event monitor (30 da ys)Ordered By: Colin Lam on 05-01-2024 [facility] [employer] Work Phone: Fibroscanon 03-31-2024 Table formatting fro m the original result was not included. [facility] Infectious Disease Patient: Tyrese Abdalla : 1985 Height: 6'3'' Weight: 376.8lbs BMI: Procedure: Patient referred by Dr. Dent for open-access FibroScan study for diagnosis of Fatty Liver Patient identified x 2 and verified the following: age 18 or older-yes Fasting >3 hours-yes FibroScan study completed using Extra Large probe and 26 consecutive valid measurements obtained. Patient body habitus made it complicated to obtain results. Patient had a difficult time laying flat and staying stationary. Results: Median=7.7 kPa IQR/med=36 % POF=729 dB/m CHELI CONNELLY MA, 03/31/2024 2:18 PM Diagnosis/Problems: Diagnosis Plan 1. Fatty liver Fibroscan Provider Impression: [facility] Progress Noteon 03-31-2024 Progress Note [facility] Infectious Disease Patient: Tyrese Abdalla : 1985 Height: 6'3'' Weight: 376.8lbs BMI: 47 Procedure: Patient referred by Dr. Dent for open-access FibroScan study for diagnosis of Fatty Liver Patient identified x 2 and verified the following: age 18 or older-yes Fasting >3 hours-yes FibroScan study completed using Extra Large probe and 26 consecutive valid measurements obtained. Patient body habitus made it complicated to obtain results. Patient had a difficult time laying flat and staying stationary. Results: Median=7.7 kPa IQR/med=36 % RGR=408 dB/m CHELI CONNELLY MA, 03/31/2024 2:18 PM Diagnosis/Problems: Diagnosis Plan 1. Fatty liver Fibroscan 2. Stage 3 obesity with BMI of 47 IMPRESSION: Considering the patient's history and recent liver tests, this 1). Liver Stiffness Score of 7.7 kPa is consistent with: Liver Fibrosis Stage F 2- moderate liver fibrosis 2). Liver Fat Estimation: Patient had median Controlled Attenuation Parameter of 339 decibels/m (dB/m) the CAP Score is consistent with Liver Steatosis Stage S 3- severe, advanced fatty liver disease Interpretation: The CAP score is measured in decibels per meter (Db/m). It ranges from 100 to 400 Db/m. The table below shows ranges of CAP scores and the matching steatosis grade and amount of fatty change. Cap Score Steatosis Grade Amount of Liver with Fatty Change 238-260 dB/m S1 11 to 33% 260 to 290 Db/m S2 34 to 66% Higher than 290 Db/M S3 67% or more Your fibrosis result is a measurement of the amount of scarring in your liver. FibroScan measures scarring by measuring the stiffness of your liver. The fibrosis result is measured in kilopascals (kPa) It's normally between 2 and 6 kPa. The highest possible result is 75 kPa. Many people with liver disease(s) have a result that's higher than the normal range. Your healthcare provider will use your FibroScan fibrosis result and your medical history to determine your fibrosis score. Fibrosis score F0 to F1: No liver scarring or mild liver scarring Fibrosis score F2: Moderate liver scarring Fibrosis score F3: Severe liver scarring Fibrosis score F4: Advanced liver scarring (cirrhosis) Using your FibroScan fibrosis result to estimate your fibrosis score The table below shows liver diseases, ranges of fibrosis results, and the matching fibrosis score. The ranges of fibrosis results in the table are estimates. This means that your actual fibrosis score (the score that your healthcare provider tells you) may not match the fibrosis score in the table. If you have more than one liver disease, you may not be able to use the table. To use the table, find the liver disease that you have on the left side of the table. Read across the row from left to right until you find the range that includes your fibrosis result. Then, look at the top of that column to see the fibrosis score. F0 to F1 F2 F3 F4 Hepatitis B 2 to 7 kPa 8 to 9 kPa 8 to 11kPa 18 kPa or higher Hepatitis C 2 to 7 kPa 8 to 9 kPa 9 to 14kPa 14 kPa or higher HIV/HCV Coinfection 2 to 7 kPa 7 to 11 kPa 11 to 14kPa 14 kPa or higher Non-alcoholic Fatty Liver 2 to 7 kPa 7.5 to 10 kPa 10 to 14kPa 14 kPa or higher Disease (NAFLD OR GUTIERREZ) Alcohol Related Disease 2 to 7 kPa 7.5 to 11 kPa 11 to 19kPa 19 kPa or higher Your fibrosis result may be over-estimated (your liver may have less scarring than what your fibrosis result says) if you have: Liver inflammation. This can be caused by a recent liver illness or drinking alcohol. Benign (not cancerous) or cancerous tumors in your liver. Liver congestion (when your liver is too full of blood or other fluids). This is usually caused by heart failure. Your FibroScan results may also be less accurate if you have: A body mass index (BMI) higher than 30 (obesity) A build-up of fluid in your abdomen (ascites) Too little bile flowing out of your liver (biliary obstruction) [facility] 36on 03-17-2024 36 S: Patient spoke wit h [facility] nurse regarding chest pain. B: Onset of symptoms/concern: started yesterday evening with left shoulder pain. A: Patient states he has left sided chest pain, constant 45 minutes, rates pain 1-2/10 on pain scale. Denies difficulty breathing at this time. Patient states he has been feeling fatigued. States he recently started Lisinopril for high blood pressure and Mounjaro for his diabetes. States he has been having an irregular heart rate, states he has PVC's on his home monitor, heart rate 75-80, but irregular at times. States he had mild lightheadedness this morning, but denies at this time. States he is driving to work now. R: Advised to side puller and call 911. States he will drive to [facility] now, closest ER to him, but if he worsens, he will side puller and call 911. Advised if chest pain worsens or he has shortness of breath, to side puller and call 911. No further needs at this time. Patient instructed to call back with new or worsening symptoms. Called Dr Dent's office, spoke with office and advised patient going to the ER for chest pain, states she will send a message to Dr Dent. Reason for Disposition Chest pain lasting longer than 5 minutes, over 30 years old, and at least one cardiac risk factor (e.g., diabetes mellitus, high blood pressure, high cholesterol, smoker, or strong family history of heart disease) Protocols used: Chest [id number] [facility] 36on 02-12-2024 36 S: Patient spoke wit h [facility] nurse regarding irregular HR reading on Bp cuff. Patient of Dr. Dent. B: Onset of symptoms/concern Per Bp monitor, it's showing an irregular heartbeat. Was in the office on Thursday, Bp was slightly elevated with BG also. He was started on Lisinopril 5mg and Glimepiride 2mg. States that he has family H/O Afib. A: HR 90-100. Denies chest pain, heart palpitations. Intermittent ongoing fuzziness mentally, fatigue, shortness of breath with exertion. Current Bp 143/83 HR 89 about 45 minutes ago. Current BG 149. Symbol on Bp reading showed irregular HR. Patient states that he is feeling a pause on the wrist when checking Bp, states that this never happened in the past. Patient states I've been feeling really off. R: Message sent to Dr. Dent who advised that patient go to ED for evaluation. Message relayed to patient, he verbalized understanding. No further needs at this time. Reason for Disposition Patient sounds very sick or weak to the triager Protocols used: Heart Rate and Heartbeat [id number] [facility] Hepatic function 2000 panelo n 01-02-2023 Albumin [Mass/Vol] 4.3 g/dL 3.9 - 4.9 g/dL [facility] ALP [Catalytic activity/Vol] 148 U/L High 38 - 113 U/L [facility] ALT With P-5'-P [Catalytic activity/Vol] 39 U/L 10 - 54 U/L [facility] AST With P-5'-P [Catalytic activity/Vol] 29 U/L 14 - 40 U/L [facility] Bilirubin [Mass/Vol] 0.3 mg/dL 0.2 - 1 .3 mg/dL [facility] Bilirubin.conjugated [Mass/Vol] <0.2 mg/dL [facility] Protein [Mass/Vol] 7.3 g/dL 6.3 - 8.0 g/dL [facility] Albumin [Mass/Vol] 4.3 g/dL Normal 3.9-4.9 [facility] Comment on above: Order Comment: Speci men Type: BLOOD SPECIMEN Ordering Facility: [facility] Address: [address] [place] [address] Performed By: #### 2 4325-3 #### [facility] CLIA [id number] [address] OF [facility] ALP [Catalytic activity/Vol] 148 U/L High 38-113 [facility] Comment on above: Order Comment: Speci men Type: BLOOD SPECIMEN Ordering Facility: [facility] Address: [address] [place] [address] Performed By: #### 2 4325-3 #### [facility] CLIA [id number] [address] OF [facility] ALT With P-5'-P [Catalytic activity/Vol] 39 U/L Normal 10-54 [facility] Comment on above: Order Comment: Speci men Type: BLOOD SPECIMEN Ordering Facility: [facility] Address: [address] [place] [address] Performed By: #### 2 4325-3 #### [facility] CLIA [id number] [address] AST With P-5'-P [Catalytic activity/Vol] 29 U/L Normal 14-40 [facility] Comment on above: Order Comment: Speci men Type: BLOOD SPECIMEN Ordering Facility: [facility] Address: [address] [place] [address] Performed By: #### 2 4325-3 #### [facility] CLIA [id number] [address] OF [facility] Bilirubin [Mass/Vol] 0.3 mg/dL Normal 0.2-1.3 [facility] Comment on above: Order Comment: Speci men Type: BLOOD SPECIMEN Ordering Facility: [facility] Address: [address] [place] [address] Performed By: #### 2 4325-3 #### [facility] CLIA [id number] [address] Bilirubin.conjugated [Mass/Vol] mg/dL Normal <0.2 [facility] Comment on above: Order Comment: Speci men Type: BLOOD SPECIMEN Ordering Facility: [facility] Address: [address] [place] [address] Performed By: #### 2 4325-3 #### [facility] CLIA [id number] [address] [place] [address] OF [facility] Protein [Mass/Vol] 7.3 g/dL Normal 6.3-8.0 [facility] Comment on above: Order Comment: Speci men Type: BLOOD SPECIMEN Ordering Facility: [facility] Address: [address] [place] [address] Performed By: #### 2 4325-3 #### [facility] CLIA [id number] [address] OF [place] Mitochondria Ab IF Ql (S)on 01-02-2023 Mitochondria M2 Ab IA Qn (S) 4.8 Units Normal <=20.0 [facility] Comment on above: Order Comment: Speci men Type: BLOOD SPECIMEN Ordering Facility: [facility] Address: [address] [place] [address] Performed By: #### 1 4252-1, 76220-9 #### [facility] CLIA [id number] [address] [facility] [id number] OF [place] Mitochondria M2 Ab Ql (S) Negative Normal Negative [facility] Comment on above: Order Comment: Speci men Type: BLOOD SPECIMEN Ordering Facility: [facility] Address: [address] [place] [address] Result Comment: Anti -mitochondrial antibody test is used as an aid in diagnosis of primary biliary cholangitis. Clinical correlation is required. Performed By: #### 1 4252-1, 13700-2 #### [facility] CLIA [id number] [address] [place] [address] [place] Smooth muscle Ab Ql (S)on ACTIN SMOOTH MUSCLE IGG QUALITATIVE Negative Normal Negative [facility] Comment on above: Order Comment: Speci men Type: BLOOD SPECIMEN Ordering Facility: [facility] Address: [address] [place] [address] Performed By: #### 1 4252-1, 04390-1 #### [facility] CLIA [id number] [address] OF [place] ACTIN SMOOTH MUSCLE IGG QUANTITATIVE 6 Units Normal <20 [facility] Comment on above: Order Comment: Speci men Type: BLOOD SPECIMEN Ordering Facility: [facility] Address: [address] [place] [address] Performed By: #### 1 4252-1, 02979-6 #### [facility] CLIA [id number] [address] [place] [address] [place] CR Hip w/ Pelvis 2 or 3 View s Righton 02-06-2022 CR Hip w/ Pelvis 2 or 3 Views Right Patient Name: JATINDER XIONG Diagnostic Radiology ACCESSION EXAM DATE/TIME PROCEDURE ORDERING PROVIDER [id number] 02/06/2022 17:00 EDT CR Hip w/ Pelvis 2 or 3 MD FILIPE, BROCK Ott Views Right n CPT code 17048 Reason For Exam (CR Hip w/ Pelvis 2 or 3 Views Right n) right hip pain Report RIGHT HIP CLINICAL INDICATION: Right hip pain A single AP view of the pelvis followed by AP and lateral views of the right hip were obtained. COMPARISON: None FINDINGS: No fracture or dislocation of the pelvis or right hip is identified. Mild to moderate loss of joint space and degenerative spurring is noted within the right hip. There is mild loss of joint space and degenerative spurring within the left hip. The sacroiliac joints appear grossly unremarkable. No lytic or blastic bony lesions are seen. IMPRESSION: No fracture or dislocation of the pelvis or right hip is seen. Mild to moderate osteoarthritis of the right hip. Mild osteoarthritis of the left hip. Report Dictated on Final Dictating Physician: MD JETT JONATHAN R Signed Date and Time: 02/08/2022 5:07 pm Signed by: MD JETT JONATHAN R Transcribed Date and Time: 02/08/2022 5:08 [facility] Vital Signs Date Time Vital Sign Value Performing Clinician Reynaldo moreno 03-13-2025 12:15-0400 Body height 193.[address] Reba Leyva MD Work Phone: [facility] 11-14-2024 14:090400 Body height 190.5 cm Tom Ball CARGO MATE.LATHE SET UP OPERATOR Work Phone: [facility] 11-14-2024 14:09-0400 Body mass index (BMI) [Ratio] 44.96 kg/m2 Tom Ball CARGO MATE.LATHE SET UP OPERATOR Work Phone: [facility] 11-14-2024 14:09-0400 Body temperature 97.5 [degF] Tom Ball CARGO MATE.LATHE SET UP OPERATOR Work Phone: [facility] 11-14-2024 14:09-0400 Body weight 163.15 kg Tom Ball CARGO MATE.LATHE SET UP OPERATOR Work Phone: [facility] 11-14-2024 14:09-0400 Diastolic blood pressure 86 mm[Hg] Tom Ball CARGO MATE.LATHE SET UP OPERATOR Work Phone: [facility] 11-14-2024 14:09-0400 Heart rate 92 /min Tom Ball CARGO MATE.LATHE SET UP OPERATOR Work Phone: [facility] 11-14-2024 14:09-0400 Respiratory rate 18 /min Tom Ball CARGO MATE.LATHE SET UP OPERATOR Work Phone: [facility] 11-14-2024 14:09-0400 SaO2% (BldA) [Mass fraction] 95 % Tom Ball CARGO MATE.LATHE SET UP OPERATOR Work Phone: [facility] 11-14-2024 14:09-0400 Systolic blood pressure 118 mm[Hg] Tom Tatum APRN.LATHE SET UP OPERATOR Work Phone: [facility] 03-31-2024 14:18-0400 Body height 190.5 cm Fibroscan Schedule [facility] 03-31-2024 14:180400 Body mass index (BMI) [Ratio] 47.1 kg/m2 Fibroscan Schedule [facility] 03-31-2024 14:180400 Body weight 170.91 kg Fibroscan Schedule [facility] 01-02-2023 15:040 Body height 190.5 cm Marcy Rafa PA-C Work Phone: [facility] 01-02-2023 15:040 Body weight 171.91 kg Marcy Rafa PA-C Work Phone: [facility] 01-02-2023 15:010400 Diastolic blood pressure 80 mm[Hg] Marcy Rafa PA-C Work Phone: [facility] 01-02-2023 15:01-0400 Heart rate 83 /min Marcy Rafa PA-C Work Phone: [facility] 01-02-2023 15:010400 Systolic blood pressure 138 mm[Hg] Marcy Rafa PA-C Work Phone: [facility] Encounters Encounter Date Encounter Type Care Provider Facility Start: 04-19-2025 ambulatory Reba Leyva Facility: [facility] Start: 03-17-2025 End: 03-17-2025 Patient encounter procedure Sofía SNOW -[facility] Work Phone: Start: 03-17-2025 End: 03-17-[address] Reba Leyva MD Work Phone: -[facility] Start: 12-15-2024 End: 12-15-2024 ambulatory REBA LEYVA Facility:[facility] Start: 11-14-2024 End: 11-14-2024 ambulatory BROCK DENT Facility:[facility] Start: 11-14-2024 End: 11-14-2024 Office outpatient visit 25 minutes Tom Rc SINGH Work Phone: [facility] Comment on above: Flu-like symptoms (P rimary Dx); Acute cough Start: 08-09-2024 End: 08-09-2024 Emergency department patient visit Reba Leyva Facility:[facility] Start: 07-26-2024 ambulatory [facility] O[facility] Facil ity:[facility] Start: 03-31-2024 End: 03-31-2024 Clinical Support Fibroscan Schedule [facility] Infect[facility] Comment on above: Fatty liver Start: 03-24-2024 End: 03-24-2024 Subsequent hospital visit by physician Olimpia Albarran Work Phone: [facility] Non-Invasive Cardiology Comment on above: Cardiac arrhythmia, unspecified Start: 03-24-2024 End: 03-24-2024 ambulatory OLIMPIA [facility] Start: 03-21-2024 End: 06-20-2024 Transcribe Orders Brock Dent MD Work Phone: [facility] Comment on above: Cardiac arrhythmia, unspecified (Primary Dx) Start: 03-17-2024 End: 03-17-2024 ambulatory Shari Mcgowan RN [facility] Start: 03-17-2024 End: 03-17-2024 Patient encounter procedure Shari Mcgowan RN [facility] Start: 03-01-2024 ambulatory NOT RECORDED PHYSICIAN Facility:B Start: 02-12-2024 ambulatory Rachelle Black RN [facility] Start: 02-12-2024 Patient encounter procedure Rachelle Black RN [facility] Start: 01-05-2023 Telephone encounter Marcy Craig PA-C Work Phone: [facility] Comment on above: Fibroscan order Start: 01-02-2023 End: 01-03-2023 ambulatory BROCK DENT Facility:[facility] Start: 01-02-2023 End: 01-02-2023 Patient encounter procedure Marcy Craig PA-C Work Phone: [facility] Comment on above: Elevated LFTs (Prima ry Dx); Fatty metamorphosis of liver Start: 11-11-2022 End: 11-11-[address] BROCK DENT MD [facility] Start: 02-06-2022 End: 02-06-2022 Subsequent hospital visit by physician Brock Dent MD Work Phone: [facility] Radiology Procedures Date Procedure Procedure Detail Performing Clinician Start: 03-31-2024 Liver elastography w /o imag w/i&r Ame Montez MD Work Phone: Plan of Treatment Date Care Activity Detail Author Start: 2044 RSV Immunization age d 60 or older (1 - 1-dose 60+ series) RSV Immunization aged 60 or older (1 - 1-dose 60+ series) [facility] Start: 2034 Zoster Vaccines (1 of 2) Zoste r Vaccines (1 of 2) [facility] Start: 05-08-2024 COVID-19 Vaccine ( season) COVID-19 Vaccine ( season) [facility] Start: 05-08-2024 Covid-19 Vaccine ( season) Covid-19 Vaccine ( season) [facility] Start: 05-08-[address] [facility] Start: 03-31-2024 End: 03-31-2024 Clinical Support 03/31/2024 2:30 PM EDT Clinical Support [facility] [address] [address] [facility] Start: 05-08-2023 COVID-19 Vaccine ( season) COVID-19 Vaccine ( season) [facility] Start: 05-08-2023 Influenza vaccination INFLUENZ A (Season Ended) [facility] Start: 01-02-2023 End: 03-04-2023 Mitochondria Ab [Presence] in Serum by Immunofluorescence [facility] Work Phone: Comment on above: Expected: 01/02/2023 , Expires: 03/04/2023 Start: 01-02-2023 End: 03-04-2023 Smooth muscle Ab [Presence] in Serum [facility] Work Phone: Comment on above: Expected: 01/02/2023 , Expires: 03/04/2023 Start: 09-07-2022 DEPRESSION ASSESSMENT DEPRESSION ASS ESSMENT [facility] Start: 05-08-2022 Influenza vaccination Flu vacc ine (Season Ended) [facility] Start: 11-16-2019 Lipid panel Lipid Screening [facility] Start: 11-16-2019 LIPID SCREEN LIPID SCREEN [facility] Start: 11-16-2003 DTaP/Tdap/Td vaccine (1 - Tdap) DTaP/Tdap/Td vaccine (1 - Tdap) [facility] Start: 11-16-2003 DTaP/Tdap/Td Vaccine s (1 - Tdap) DTaP/Tdap/Td Vaccines (1 - Tdap) [facility] Start: 11-16-2003 Hepatitis A Vaccines (1 of 2 - Risk 2-dose series) Hepatitis A Vaccines (1 of 2 - Risk 2-dose series) [facility] Start: 11-16-2003 Hepatitis B Vaccine (1 of 3 - 19+ 3-dose series) Hepatitis B Vaccine (1 of 3 - 19+ 3-dose series) [facility] Start: 11-16-2003 Hepatitis B Vaccines (1 of 3 - 19+ 3-dose series) Hepatitis B Vaccines (1 of 3 - 19+ 3-dose series) [facility] Start: 11-16-2003 Urine microalbumin profile [facility] Start: 2002 Anxiety Screening Anxiety Screening [facility] Start: 2002 [facility]: 2002 Diabetes: Estimated Glomerular Filtration Rate for [facility]ney Health Diabetes: Estimated Glomerular Filtration Rate for Kid[facility] Health [facility] Start: 2002 Diabetes: Urine Albumin-Creatinine Ratio for [facility] Health Diabetes: Urine Albumin-Creatinine Ratio for [facility] Start: 2002 HEPATITIS C SCREENING [facility]ITIS C [facility] Start: 2002 Hepatitis C screening Hepatitis C Sc [facility] Start: 2002 HIV SCREENING HIV SCREENING [facility] Start: 2002 [facility] Start: 1997 Varicella vaccination Varicell a Vaccines (1 of 2 - 13+ 2-dose series) [facility] Start: 1996 Depression Screening Depression Scre ening [facility] Start: 1994 Diabetic foot examination Diabetes: Foot Exam [facility] Start: 1994 Glaucoma screening Diabetes: R etinopathy Screening [facility] Start: 1994 Preventive dental service Diabetes: Dental Exam [facility] Start: 1989 COVID-19 Vaccine (1) COVID-19 Vaccin e (1) [facility] Start: 1985 MMR Vaccines (1 of 1 - Standard series) MMR Vaccines (1 of 1 - Standard series) [facility] Start: 05-18-1985 COVID-19 VACCINE (#1) COVID-19 VACCI NE (#1) [facility] Start: 1984 Hemoglobin A1c measurement Maryjane betes: Hemoglobin A1C [facility] Start: 1984 HEPATITIS B (1 of 3 - 3-dose series) HEPATITIS B (1 of 3 - 3-dose series) [facility] [facility] Start: 1985 HIV screening HIV Screening [facility] Start: 1984 Lipid panel Lipid Panel [facility] End: 03-24-2024 Cardiac event monitor (30 days) [facility] Work Phone: Comment on above: Once for 1 Occurrenc es starting 03/24/2024 until 03/24/2024 DDI VIBRATION CONTRO LLED TRANSIENT ELASTOGRAPHY (VCTE) DDI VIBRATION CONTROLLED TRANSIENT ELASTOGRAPHY (VCTE) Endoscopy Routine Fatty metamorphosis of liver Elevated LFTs Ordered: 01/05/2023 [facility] Work Phone: Comment on above: Ordered: 01/05/2023 End: 02-06-2022 XR HIP RIGHT (2-3 VIEWS) [facility] Work Phone: Comment on above: Once for 1 Occurrenc es starting 02/06/2022 until 02/06/2022 Payers Date Payer Category Payer Private Health Insurance MMO SUP ER[employer] PPO [id number] 2024 Unknown [id number] 2024 Self-pay 2024 Unknown [id number] 2022 Unknown [id number] 2022 Unknown [id number] 1985 Unknown [id number] 1984 Unknown [id number] Unknown [id number] Unknown [id number] Unknown [id number] Unknown [id number] Social History Date Type Detail Facility Start: 01-05-2017 End: 03-13-2025 Tobacco smoking status AKIS Never smoked tobacco [facility] Start: 1985 Sex Assigned At Male [facility] Tobacco smoking status No Smokin g Status Entered [facility] Start: 01-02-2023 Tobacco use and exposure Smokeless tobacco non-user [facility] Start: 01-02-2023 Alcohol intake Lifetime non-d siria (finding) [facility] Start: 1985 Sex Assigned At Not on file C [facility] Start: 08-26-2022 End: 01-02-2023 History of Social function [facility] Start: 08-26-2022 End: 01-02-2023 Tobacco use panel [facility] Start: 06-26-2022 Gender identity Identifies as male gender (finding) [facility] Start: 06-26-2022 Sexual orientation Heterosexual (fin ding) [facility] National Score (1-10 0), lower number is lower risk 77 [facility] Clinical Notes 11-11-2022 to 11-14-2024 Patient InstructionsTom Tatum APRN.CNP - 11/14/2024 2:22 PM EDTMelissemil Connelly MA - 03/31/2024 2:30 PM EDTTelephone Encounter - Shari Mcgowan RN - 03/17/2024 7:24 AM EDTPatient Instructions Note Date & Type Note Facility 11-14-2024 Instructions Tom Tatum APRN.LATHE SET UP OPERATOR - 11/14/2024 2:29 PM EDT UPPER RESPIRATORY INFECTIONS Most cases are caused by viruses and most cases are mild, temporary, and harmless. Symptoms can last 2 to 3 weeks and can include: nasal congestion, sore throat, coughing, muscles aches, headaches, nausea, diarrhea, fatigue and fever. Rhinovirus, RSV, Covid, Influenza A and B, Parainfluenza are just a few COMMON respiratory viruses that cause sinus symptoms and cough. Antibiotics do NOT treat viruses. Taking 1 round of antibiotics can destroy your gut normal ashtyn (good bacteria) for up to 6 months. This can affect your weight, skin, digestion, mental health and immune system. 1. Drink plenty of fluids. 2. Get lots of rest. 3. Avoid dehydrants such as caffeine and alcohol. 4. Nasal saline is an effective decongestant and be used frequently throughout the day. 5. To loosen phlegm and help coughing, drink plenty of fluids and using a humidifier. 6. For sore throats, it is ok to use cough drops, throat sprays, or gargling warm salt water. 7. Always cover your mouth when you cough or sneeze, and wash your hands frequently. Avoid crowded areas like shopping centers, movies while you are sick so you don't slate picker a different virus, or infect others. 8. Avoid exposure to cigarettes or fumes. 9. Avoid irritants such as potpourri, dust, perfumes, scented candles and scented sprays 10. Air conditioning is an effective allergen and irritant avoidance strategy in the spring, summer and fall. 11. Honey is an effective cough suppressant. Try one tsp 3-4 times per day. 12. Mucinex every 12 hours with a full 10-12 ounces of water 13. Afrin for 3-4 days for congestion and post nasal drainage is both safe and effective [facility] PATIENT INFO INFLUENZA INTRODUCTION Influenza (commonly called the flu) is a highly contagious illness that can occur in children or adults of any age. It occurs more often in the winter months because people spend more time in close contact with one another. The flu is spread easily from srilxr-cs-djrivs by coughing, sneezing, or touching surfaces. Every year, complications of the flu require more than 200,000 people in the [place] to be hospitalized. Serious illness is more likely in the very young, older adults, women, and people who have certain health problems such as asthma or other forms of lung disease. There have been several widespread flu outbreaks (called pandemics), which led to the deaths of many people worldwide. These outbreaks occurred when new strains of influenza viruses formed (often from pigs or birds) and humans became infected because they had no immunity to these viruses. FLU SYMPTOMS Symptoms of seasonal flu can vary from person to person, but usually include: Fever (temperature higher than 100 F or 37.8 C) Headache and muscle aches Fatigue Cough and sore throat may also be present People with the flu usually have a fever for two to five days. This is different than fever caused by other upper respiratory viruses, which usually resolve after 24 to 48 hours. Some people have cold-like symptoms (runny nose, sore throat) during the flu while others have fever and muscle aches. Flu symptoms usually improve over two to five days, although the illness may last for a week or more. Weakness and fatigue may persist for several weeks Flu complications -- Complications of influenza occur in some people; pneumonia is the most common complication. Pneumonia is a serious infection of the lungs, and is more likely to occur in people over the age of 65, people who live in long-term care facilities (nursing homes), and those with other illnesses such as diabetes or conditions affecting the heart or lungs. FLU DIAGNOSIS Influenza is usually diagnosed based on symptoms (fever, cough and muscle aches). Lab testing for influenza is performed in certain cases, such as during a new influenza outbreak in a community. FLU TREATMENT When to seek help -- Most people with the flu recover within one to two weeks without treatment. However, serious complications of the flu can occur. Call your doctor or nurse immediately if: You feel short of breath or have trouble breathing You have pain or pressure in your chest or stomach You have signs of being dehydrated, such as dizziness when standing or not passing urine You feel confused You cannot stop vomiting or you cannot drink enough fluids There are several groups of people who are at increased risk for flu complications. These include women, young children (<5 years of age, and especially <2 years of age), people >=65 years of age, and people with certain diseases such as chronic lung disease (such as asthma), heart disease, diabetes, immunosuppressing conditions (such as HIV infection or transplantation), and some other diseases. If you or your child has flu symptoms and is at increased risk of flu complications, you should call your healthcare provider. Treat symptoms -- Treating the symptoms of influenza can help you to feel better, but will not make the flu go away faster. Rest until the flu is fully resolved, especially if the illness has been severe Fluids -- Drink enough fluids so that you do not become dehydrated. One way to patrol judge if you are drinking enough is to look at the color of your urine. Normally, urine should be light yellow to nearly colorless. If you are drinking enough, you should pass urine every three to five hours. Acetaminophen (such as Tylenol and other brands) can relieve fever, headache, and muscle aches. Aspirin, and medicines that include aspirin (eg, bismuth subsalicylate; PeptoBismol), are not recommended for children under 18 because aspirin can lead to a serious disease called Kory syndrome. Cough medicines are not usually helpful; cough usually resolves without treatment. We do not recommend cough or cold medicine for children under age six years. Antiviral treatment -- Antiviral medicines can be used to treat or prevent influenza. When used as a treatment, the medicine does not eliminate flu symptoms, although it can reduce the severity and duration of symptoms by about one day. Not every person with influenza needs an antiviral medicine; the decision is based upon your risk of developing complications of influenza. Antiviral treatment is most effective for seasonal influenza when it is taken within the first 48 hours of flu symptoms. Side effects -- Zanamivir and oseltamivir can cause mild side effects, including nausea and vomiting; zanamivir, which is inhaled, can cause difficulty breathing in some cases. Most people are able to continue the medicine despite the side effects. Antibiotics -- Antibiotics are NOT useful for treating viral illnesses such as influenza. Antibiotics should only used if there is a bacterial complication of the flu such as bacterial pneumonia, ear infection, or sinusitis. Antibiotics can cause side effects and lead to development of antibiotic resistance. documented in this encounter [facility] 11-14-2024 Note HNO ID: [id number] Author: TOM TATUM APRN.REMBERTO Service: ? Author Type: Nurse Practitioner Type: Progress Notes Filed: 11/14/2024 14:30 Note Text: This note was created using NoteWriter. Subjective Jatinder Xiong is a 38 year old male. HPI by patient: Jatinder is a 38 year old presenting to the office with the complaint of flu like symptoms that started last but getting worse Started approximately last week Associated symptoms include cough, bubbling in chest, severe nausea, scratchy throat, congestion, bubbling in ears. Has hx of ischemic mesentary issues and bowel blockages d/t Denies any other concerns Covid Immunization Dates Current Care Gaps Covid-19 Vaccine ( season) Never done No completion, postpone, frequency change, or communication history exists for this topic. Sick contacts: no Smoking history/second hand smoke: no OTC mucinex, tylenol, and dramamine NO antibiotic use in the last 60 days. ALLERGIES Morphine Shortness of Breath Naproxen Other: See Comments Vicodin [Hydrocodon* GI Upset Family History Reviewed Including Cardiac Diseases, Psychiatric Diseases, AND Substance Abuse Problem: Colon Cancer Relation: No Family History Age of Onset: (Not Specified) Social History Tobacco Use Smoking status: Never Smokeless tobacco: Never Alcohol use: Never Drug use: Never Review of Systems Constitutional: Positive for chills and fatigue. Negative for fever. HENT: Positive for congestion, ear pain and sore throat. Negative for rhinorrhea. Respiratory: Positive for cough and wheezing. Cardiovascular: Negative for chest pain. Gastrointestinal: Positive for nausea. Allergic/Immunologic: Negative for immunocompromised state. Neurological: Negative for headaches. Hematological: Negative for adenopathy. Objective BP 118/86 (BP Site: Right Arm, BP Position: Sitting, BP Cuff Size: Large Adult) Pulse 92 Temp 36.4 ?C (97.5 ?F) (Left Tympanic) Resp 18 Ht 190.5 cm (6' 3) Wt (!) 163.2 kg (359 lb 10.9 oz) SpO2 95% BMI 44.96 kg/m? Physical Exam Vitals reviewed. Constitutional: Appearance: Normal appearance. HENT: Head: Normocephalic. Nose: Congestion present. No rhinorrhea. Mouth/Throat: Pharynx: No oropharyngeal exudate or posterior oropharyngeal erythema. Pulmonary: Effort: Pulmonary effort is normal. No respiratory distress. Breath sounds: Normal breath sounds. No stridor. No wheezing, rhonchi or rales. Chest: Chest wall: No tenderness. Musculoskeletal: General: Normal range of motion. Cervical back: Full passive range of motion without pain. Skin: General: Skin is warm. Neurological: Mental Status: He is alert. Psychiatric: Behavior: Behavior is cooperative. Assessment and Plan ASSESSMENT/PLAN: 1. Flu-like symptoms - ICD9: 780.99, ICD10: R68.89 (primary diagnosis) - PREDNISONE 10 MG TABLET - PROMETHAZINE-DM 6.25 MG-15 MG/5 ML ORAL SYRUP 2. Acute cough - ICD9: 786.2, ICD10: R05.1 - PREDNISONE 10 MG TABLET - PROMETHAZINE-DM 6.25 MG-15 MG/5 ML ORAL SYRUP Tom Tatum APRN.CNP Medical Decision Making: Problems: Moderate: New problem with uncertain prognosis Data: Unique source(s) for external note(s) reviewed: 1 Risk: Moderate: Drug management Medical Decision Making Level: 4 - Moderate [facility] 11-14-2024 History of Presen t illness Narrative This note was created using Defense.Netriter. Subjective Jatinder Xiong is a 38 year old male. HPI by patient: Jatinder is a 38 year old presenting to the office with the complaint of flu like symptoms that started last but getting worse Started approximately last week Associated symptoms include cough, bubbling in chest, severe nausea, scratchy throat, congestion, bubbling in ears. Has hx of ischemic mesentary issues and bowel blockages d/t Denies any other concerns Covid Immunization Dates Current Care Gaps Covid-19 Vaccine ( season) Never done No completion, postpone, frequency change, or communication history exists for this topic. Sick contacts: no Smoking history/second hand smoke: no OTC mucinex, tylenol, and dramamine NO antibiotic use in the last 60 days. ALLERGIES Morphine Shortness of Breath Naproxen Other: See Comments Vicodin [Hydrocodon* GI Upset Family History Reviewed Including Cardiac Diseases, Psychiatric Diseases, & Substance Abuse Problem: Colon Cancer Relation: No Family History Age of Onset: (Not Specified) Social History Tobacco Use Smoking status: Never Smokeless tobacco: Never Alcohol use: Never Drug use: Never Review of Systems Constitutional: Positive for chills and fatigue. Negative for fever. HENT: Positive for congestion, ear pain and sore throat. Negative for rhinorrhea. Respiratory: Positive for cough and wheezing. Cardiovascular: Negative for chest pain. Gastrointestinal: Positive for nausea. Allergic/Immunologic: Negative for immunocompromised state. Neurological: Negative for headaches. Hematological: Negative for adenopathy. Objective BP 118/86 (BP Site: Right Arm, BP Position: Sitting, BP Cuff Size: Large Adult) Pulse 92 Temp 36.4 C (97.5 F) (Left Tympanic) Resp 18 Ht 190.5 cm (6' 3) Wt (!) 163.2 kg (359 lb 10.9 oz) SpO2 95% BMI 44.96 kg/m Physical Exam Vitals reviewed. Constitutional: Appearance: Normal appearance. HENT: Head: Normocephalic. Nose: Congestion present. No rhinorrhea. Mouth/Throat: Pharynx: No oropharyngeal exudate or posterior oropharyngeal erythema. Pulmonary: Effort: Pulmonary effort is normal. No respiratory distress. Breath sounds: Normal breath sounds. No stridor. No wheezing, rhonchi or rales. Chest: Chest wall: No tenderness. Musculoskeletal: General: Normal range of motion. Cervical back: Full passive range of motion without pain. Skin: General: Skin is warm. Neurological: Mental Status: He is alert. Psychiatric: Behavior: Behavior is cooperative. Assessment and Plan ASSESSMENT/PLAN: 1. Flu-like symptoms - ICD9: 780.99, ICD10: R68.89 (primary diagnosis) - PREDNISONE 10 MG TABLET - PROMETHAZINE-DM 6.25 MG-15 MG/5 ML ORAL SYRUP 2. Acute cough - ICD9: 786.2, ICD10: R05.1 - PREDNISONE 10 MG TABLET - PROMETHAZINE-DM 6.25 MG-15 MG/5 ML ORAL SYRUP Tom Tatum APRN.CNP Medical Decision Making: Problems: Moderate: New problem with uncertain prognosis Data: Unique source(s) for external note(s) reviewed: 1 Risk: Moderate: Drug management Medical Decision Making Level: 4 - Moderate documented in this encounter [facility] 03-31-2024 History of Presen t illness Narrative [facility] [place] Infectious Disease Patient: Tyrese Abdalla : 1985 Height: 6'3'' Weight: 376.8lbs BMI: 47 Procedure: Patient referred by Dr. Dent for open-access FibroScan study for diagnosis of Fatty Liver Patient identified x 2 and verified the following: age 18 or older-yes Fasting >3 hours-yes FibroScan study completed using Extra Large probe and 26 consecutive valid measurements obtained. Patient body habitus made it complicated to obtain results. Patient had a difficult time laying flat and staying stationary. Results: Median=7.7 kPa IQR/med=36 % PKS=579 dB/m CHELI CONNELLY MA, 03/31/2024 2:18 PM Diagnosis/Problems: Diagnosis Plan 1. Fatty liver Fibroscan 2. Stage 3 obesity with BMI of 47 IMPRESSION: Considering the patient's history and recent liver tests, this 1). Liver Stiffness Score of 7.7 kPa is consistent with: Liver Fibrosis Stage F 2- moderate liver fibrosis 2). Liver Fat Estimation: Patient had median Controlled Attenuation Parameter of 339 decibels/m (dB/m) the CAP Score is consistent with Liver Steatosis Stage S 3- severe, advanced fatty liver disease Interpretation: The CAP score is measured in decibels per meter (Db/m). It ranges from 100 to 400 Db/m. The table below shows ranges of CAP scores and the matching steatosis grade and amount of fatty change. Cap Score Steatosis Grade Amount of Liver with Fatty Change 238-260 dB/m S1 11 to 33% 260 to 290 Db/m S2 34 to 66% Higher than 290 Db/M S3 67% or more Your fibrosis result is a measurement of the amount of scarring in your liver. FibroScan measures scarring by measuring the stiffness of your liver. The fibrosis result is measured in kilopascals (kPa) It's normally between 2 and 6 kPa. The highest possible result is 75 kPa. Many people with liver disease(s) have a result that's higher than the normal range. Your healthcare provider will use your FibroScan fibrosis result and your medical history to determine your fibrosis score. Fibrosis score F0 to F1: No liver scarring or mild liver scarring Fibrosis score F2: Moderate liver scarring Fibrosis score F3: Severe liver scarring Fibrosis score F4: Advanced liver scarring (cirrhosis) Using your FibroScan fibrosis result to estimate your fibrosis score The table below shows liver diseases, ranges of fibrosis results, and the matching fibrosis score. The ranges of fibrosis results in the table are estimates. This means that your actual fibrosis score (the score that your healthcare provider tells you) may not match the fibrosis score in the table. If you have more than one liver disease, you may not be able to use the table. To use the table, find the liver disease that you have on the left side of the table. Read across the row from left to right until you find the range that includes your fibrosis result. Then, look at the top of that column to see the fibrosis score. F0 to F1 F2 F3 F4 Hepatitis B 2 to 7 kPa 8 to 9 kPa 8 to 11kPa 18 kPa or higher Hepatitis C 2 to 7 kPa 8 to 9 kPa 9 to 14kPa 14 kPa or higher HIV/HCV Coinfection 2 to 7 kPa 7 to 11 kPa 11 to 14kPa 14 kPa or higher Non-alcoholic Fatty Liver 2 to 7 kPa 7.5 to 10 kPa 10 to 14kPa 14 kPa or higher Disease (NAFLD OR GUTIERREZ) Alcohol Related Disease 2 to 7 kPa 7.5 to 11 kPa 11 to 19kPa 19 kPa or higher Your fibrosis result may be over-estimated (your liver may have less scarring than what your fibrosis result says) if you have: Liver inflammation. This can be caused by a recent liver illness or drinking alcohol. Benign (not cancerous) or cancerous tumors in your liver. Liver congestion (when your liver is too full of blood or other fluids). This is usually caused by heart failure. Your FibroScan results may also be less accurate if you have: A body mass index (BMI) higher than 30 (obesity) A build-up of fluid in your abdomen (ascites) Too little bile flowing out of your liver (biliary obstruction) documented in this encounter [facility] 03-17-2024 Telephone encounter Note S: Patient spoke with [facility] nurse regarding chest pain. B: Onset of symptoms/concern: started yesterday evening with left shoulder pain. A: Patient states he has left sided chest pain, constant 45 minutes, rates pain 1-2/10 on pain scale. Denies difficulty breathing at this time. Patient states he has been feeling fatigued. States he recently started Lisinopril for high blood pressure and Mounjaro for his diabetes. States he has been having an irregular heart rate, states he has PVC's on his home monitor, heart rate 75-80, but irregular at times. States he had mild lightheadedness this morning, but denies at this time. States he is driving to work now. R: Advised to side puller and call 911. States he will drive to [facility] now, closest ER to him, but if he worsens, he will side puller and call 911. Advised if chest pain worsens or he has shortness of breath, to side puller and call 911. No further needs at this time. Patient instructed to call back with new or worsening symptoms. Called Dr Dent's office, spoke with office and advised patient going to the ER for chest pain, states she will send a message to Dr Dent. Reason for Disposition Chest pain lasting longer than 5 minutes, over 30 years old, and at least one cardiac risk factor (e.g., diabetes mellitus, high blood pressure, high cholesterol, smoker, or strong family history of heart disease) Protocols used: Chest [id number]-FANVP-DE [facility] 03-17-2024 Miscellaneous Notes S: Patient spoke with [facility] nurse regarding chest pain. B: Onset of symptoms/concern: started yesterday evening with left shoulder pain. A: Patient states he has left sided chest pain, constant 45 minutes, rates pain 1-2/10 on pain scale. Denies difficulty breathing at this time. Patient states he has been feeling fatigued. States he recently started Lisinopril for high blood pressure and Mounjaro for his diabetes. States he has been having an irregular heart rate, states he has PVC's on his home monitor, heart rate 75-80, but irregular at times. States he had mild lightheadedness this morning, but denies at this time. States he is driving to work now. R: Advised to side puller and call 911. States he will drive to [facility] now, closest ER to him, but if he worsens, he will side puller and call 911. Advised if chest pain worsens or he has shortness of breath, to side puller and call 911. No further needs at this time. Patient instructed to call back with new or worsening symptoms. Called Dr Dent's office, spoke with office and advised patient going to the ER for chest pain, states she will send a message to Dr Dent. Reason for Disposition Chest pain lasting longer than 5 minutes, over 30 years old, and at least one cardiac risk factor (e.g., diabetes mellitus, high blood pressure, high cholesterol, smoker, or strong family history of heart disease) Protocols used: Chest [id number] documented in this encounter [facility] 02-12-2024 Telephone encounter Note S: Patient spoke with [facility] nurse regarding irregular HR reading on Bp cuff. Patient of Dr. Dent. B: Onset of symptoms/concern Per Bp monitor, it's showing an irregular heartbeat. Was in the office on Thursday, Bp was slightly elevated with BG also. He was started on Lisinopril 5mg and Glimepiride 2mg. States that he has family H/O Afib. A: HR 90-100. Denies chest pain, heart palpitations. Intermittent ongoing fuzziness mentally, fatigue, shortness of breath with exertion. Current Bp 143/83 HR 89 about 45 minutes ago. Current BG 149. Symbol on Bp reading showed irregular HR. Patient states that he is feeling a pause on the wrist when checking Bp, states that this never happened in the past. Patient states I've been feeling really off. R: Message sent to Dr. Dent who advised that patient go to ED for evaluation. Message relayed to patient, he verbalized understanding. No further needs at this time. Reason for Disposition Patient sounds very sick or weak to the triager Protocols used: Heart Rate and Heartbeat [id number] [facility] [facility] Misc[facility] Notes S: Patient spoke with [facility] nurse regarding irregular HR reading on Bp cuff. Patient of Dr. Dent. B: Onset of symptoms/concern Per Bp monitor, it's showing an irregular heartbeat. Was in the office on Thursday, Bp was slightly elevated with BG also. He was started on Lisinopril 5mg and Glimepiride 2mg. States that he has family H/O Afib. A: HR 90-100. Denies chest pain, heart palpitations. Intermittent ongoing fuzziness mentally, fatigue, shortness of breath with exertion. Current Bp 143/83 HR 89 about 45 minutes ago. Current BG 149. Symbol on Bp reading showed irregular HR. Patient states that he is feeling a pause on the wrist when checking Bp, states that this never happened in the past. Patient states I've been feeling really off. R: Message sent to Dr. Dent who advised that patient go to ED for evaluation. Message relayed to patient, he verbalized understanding. No further needs at this time. Reason for Disposition Patient sounds very sick or weak to the triager Protocols used: Heart Rate and Heartbeat [id number] documented in this encounter [facility] 01-05-2023 Miscellaneous Notes Addended by: MARCY CRAIG on: 01/05/2023 10:28 AM Modules accepted: Orders Fibroscan order placed. Marcy, Please place fibroscan for patient. Will need placed prior to being scheduled to find out if insurance will cover it. Enedina Hope documented in this encounter [facility] 01-02-2023 Instructions Marcy Craig PA-C - 01/02/2023 3:17 PM EDT -- Fibroscan : Vibration Controlled Transient Elastography PRACTICAL SUGGESTIONS TO INCORPORATE MEDITERRANEAN DIET CATEGORY CONSUME AVOID Fruits and vegetables Wide variety of whole fruits and vegetables; try for at least 7-10 servings per day Vegetables prepared in butter or cream sauce High-fiber breads, cereals, and pasta Whole grain bread and cereal, bran, brown rice Sweets, white bread, biscuits, breadsticks, and other refined carbohydrates Protein that is low in saturated fat Lean cuts of meat (fat trimmed) or poultry (no skin); low-fat dairy foods (skim mild, yogurt) [place], sausage, other processed or high-fat meat, milk or cheese that is not low-fat, ice cream Fish or other source of omega-3 fatty acids, at least 1 or 2 times per week [place], trout, rdz, water-packed tuna, mackerel (or fish oil supplement); flaxseed, spinach, walnuts Fried fish ( except when gutierrez fried in olive oil) Healthy oils for cooking, salad dressing, and other uses Extra-virgin olive oil, canola oil, flaxseed oil (high-oleic sunflower or safflower oil may also be an option) [place]-6 oils, (corn, sunflower, safflower, soybean, peanut) Peas, beans, legumes, and nuts Soybeans, lentils, or any kind of peas, beans, or legumes; tree nuts (eg. Almonds,pecans, walnuts, [place] nuts) Heavily salted or honey-roasted nuts; stale or rancid nuts Alcohol One 5-oz glass of wine, a 12-oz beer, or a 1.5oz drink containing distilled spirits with the evening meal Limit to no more than 1 drink daily for women, 2 drinks daily for men Fat Emphasize whole, natural foods as above; look for 'trans-fatty acid -free margarine and snack foods Fast food, fried food, margarine, chips, crackers, baked goods, doughnuts, any processed food made with partially hydrogenated oil documented in this encounter [facility] 01-02-2023 History of Presen t illness Narrative Images from the original note were not included. CHIEF COMPLAINT: Patient presents with: Abnormal liver US : US/Labs referral to scanning This consult was requested by Brock Dent MD for an opinion regarding abdominal liver US. My final recommendations will be communicated to the requesting health care provider by way of the shared medical record for internal providers or letter via the [employer] for external providers. HPI: Jatinder Xiong is a 37 year old male who presents for Abnormal liver US (US/Labs referral to scanning ). PMHx of anxiety, GERD, OCD Patient tells me that he is doing well today. Denies abdominal pain, nausea, vomiting, GERD symptoms. Bowel movements are regular. Does take a stool softener daily for recurrent small bowel obstructions. Notes diarrhea with greasy foods. No smoking. Rare alcohol use. No IVDU, service, tattoos. No jaundice. Abdominal US Record Review: [facility] / Outside records reviewed. PAST MEDICAL HISTORY Diagnosis Date Anxiety GERD (gastroesophageal reflux disease) Gout OCD (obsessive compulsive disorder) Small bowel obstruction (HCC) PAST SURGICAL HISTORY Procedure Laterality Date COLONOSCOPY Many years ago EGD W/O BRSH SPEC VARICIES INJ Many years ago REMOVAL GALLBLADDER TONSILLECTOMY & ADENOIDECTOMY <AGE 11 Allergies: ALLERGIES Allergen Reactions Morphine Shortness of Breath Naproxen Other: See Comments Vicodin [Hydrocodon* GI Upset Medications: allopurinol (ZYLOPRIM) 100 mg tablet Take 100 mg by mouth once daily. DULoxetine (CYMBALTA) 20 mg capsule TAKE 1 CAPSULE IN THE MORNING and TAKE 2 CAPSULES IN THE EVENING indomethacin (INDOCIN) 50 mg capsule Take 50 mg by mouth three times daily. lansoprazole (PREVACID) 15 mg capsule Take 15 mg by mouth once daily. FAMILY HISTORY Problem Relation Age of Onset Colon Cancer No Family History Employer And Job Title: None on file Years Of Education Completed: Not specified Marital Status: Single Social History Tobacco Use Smoking status: Never Smokeless tobacco: Never Substance Use Topics Alcohol use: Never Drug use: Never Review of Systems: Review of Systems Constitutional: Positive for fatigue. All other systems reviewed and are negative. Are you taking any blood thinners? No Physical Examination: BP 138/80 Pulse 83 Ht 6' 3 (1.91m) Wt 379 lb (171.9kg) BMI 47.37 kg/(m^2). Physical Exam Constitutional: Appearance: Normal appearance. He is obese. HENT: Head: Normocephalic and atraumatic. Eyes: General: No scleral icterus. Extraocular Movements: Extraocular movements intact. Conjunctiva/sclera: Conjunctivae normal. Pupils: Pupils are equal, round, and reactive to light. Cardiovascular: Rate and Rhythm: Normal rate and regular rhythm. Pulses: Normal pulses. Heart sounds: Normal heart sounds. Pulmonary: Effort: Pulmonary effort is normal. Breath sounds: Normal breath sounds. Abdominal: General: Abdomen is flat. Bowel sounds are normal. Palpations: Abdomen is soft. Tenderness: There is no abdominal tenderness. Musculoskeletal: General: Normal range of motion. Cervical back: Normal range of motion and neck supple. Skin: General: Skin is warm and dry. Coloration: Skin is not jaundiced. Neurological: General: No focal deficit present. Mental Status: He is alert and oriented to person, place, and time. Psychiatric: Mood and Affect: Mood normal. Behavior: Behavior normal. Thought Content: Thought content normal. Judgment: Judgment normal. 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 Elevated LFTs -- Patient with slight elevation in Alk phos and ALT. Suspect fatty liver induced. -- Discussed fatty liver in detail today with patient. Recommend weight loss, Mediterranean diet, exercise. -- Will check HFP, SMA, AMA -- Discussed Fibroscan, he is going to check with his insurance first and let us know - HEPATIC FUNCTION PNL; Future - SMOOTH MUSCLE AB SCR; Future - MITOCHONDRIAL M2 IGG SERUM; Future 2. Fatty metamorphosis of liver -- Patient with slight elevation in Alk phos and ALT. Suspect fatty liver induced. -- Discussed fatty liver in detail today with patient. Recommend weight loss, Mediterranean diet, exercise. -- Will check HFP, SMA, AMA -- Discussed Fibroscan, he is going to check with his insurance first and let us know - HEPATIC FUNCTION PNL; Future - SMOOTH MUSCLE AB SCR; Future - MITOCHONDRIAL M2 IGG SERUM; Future Follow up in office PRN. Recommended to please call office/go to ER if fever, chills, chest pain, SOB, diarrhea, nausea, emesis, worsening abdominal pain, dehydration occurs I spent a total of 20 minutes on the date of the service which included preparing to see the patient, [id number] patient care, completing clinical documentation, obtaining and/or reviewing separately obtained history, performing a medically appropriate examination, counseling and educating the patient/family/caregiver, and ordering medications, tests, or procedures. Marcy Craig PA-C January 02, 2023 3:20 PM documented in this encounter [facility] 11-11-2022 Note ORIGINAL EXAMINATION: RIGHT UPPER QUADRANT ULTRASOUND 11/11/2022 7:46 am COMPARISON: None. HISTORY: ORDERING SYSTEM PROVIDED HISTORY: Reason for Exam: ELEVATED LIVER ENZYMES FINDINGS: LIVER: The liver demonstrates a markedly increased echogenicity without evidence of intrahepatic biliary ductal dilatation. BILIARY SYSTEM: The gallbladder is surgically absent. Common bile duct is within normal limits measuring 6 mm. RIGHT KIDNEY: The right kidney is grossly unremarkable without evidence of hydronephrosis. PANCREAS: Visualized portions of the pancreas are unremarkable. The tail of the pancreas is limited secondary to overlying bowel gas. OTHER: No evidence of right upper quadrant ascites. IMPRESSION: Markedly increased echogenicity of the liver on the basis of hepatic steatosis versus other hepatocellular disease. Given overall echogenicity consider follow-up with elastography to evaluate for underlying fibrosis/cirrhosis. Interpreted by: Joshua Elise MD Preliminary Report By: Joshua Elise MD Electronically signed By Joshua Elise MD Dictated Date: 11/11/2022 1:53:44 PM Prelim Date: 11/11/2022 2:00:39 PM Sign Date: 11/11/2022 2:00:39 PM Ordering Provider: [facility] 11-11-2022 Note ORIGINAL EXAMINATION: RIGHT UPPER QUADRANT ULTRASOUND 11/11/2022 7:46 am COMPARISON: None. HISTORY: ORDERING SYSTEM PROVIDED HISTORY: Reason for Exam: ELEVATED LIVER ENZYMES FINDINGS: LIVER: The liver demonstrates a markedly increased echogenicity without evidence of intrahepatic biliary ductal dilatation. BILIARY SYSTEM: The gallbladder is surgically absent. Common bile duct is within normal limits measuring 6 mm. RIGHT KIDNEY: The right kidney is grossly unremarkable without evidence of hydronephrosis. PANCREAS: Visualized portions of the pancreas are unremarkable. The tail of the pancreas is limited secondary to overlying bowel gas. OTHER: No evidence of right upper quadrant ascites. IMPRESSION: Markedly increased echogenicity of the liver on the basis of hepatic steatosis versus other hepatocellular disease. Given overall echogenicity consider follow-up with elastography to evaluate for underlying fibrosis/cirrhosis. Interpreted by: Joshua Elise MD Preliminary Report By: Joshua Elise MD Electronically signed By Joshua Elise MD Dictated Date: 11/11/2022 1:53:44 PM Prelim Date: 11/11/2022 2:00:39 PM Sign Date: 11/11/2022 2:00:39 PM Ordering Provider: [facility] Evaluation + Plan note No data available for this section [facility] Evaluation note Diagnosis Elevated LFTs- Primary Other abnormal blood chemistry Fatty metamorphosis of liver Other chronic nonalcoholic liver disease documented in this encounter [facility] note* Diagnosis Fatty metamorphosis of liver- Primary Other chronic nonalcoholic liver disease Elevated LFTs Other abnormal blood chemistry documented in this encounter [facility] note* Diagnosis Cardiac arrhythmia, unspecified documented in this encounter [facility] note* Diagnosis Fatty liver Other chronic nonalcoholic liver disease documented in this encounter [facility] note* Diagnosis Cardiac arrhythmia, unspecified- Primary Cardiac arrhythmia, unspecified documented in this encounter [facility] note* Diagnosis Flu-like symptoms- Primary Other general symptoms Acute cough documented in this encounter [facility] noteNo assessment [facility] Work Phone: Hospital Discharge instructions No data available for this section [facility] Reason for referral (narrative)* Outpatient Procedure (Routine) - Pending Review Specialty Diagnoses / Procedures Referred By Robbie al Referred To Contact [facility] Diagnoses Fatty metamorphosis of liver Elevated LFTs Procedures DDI VIBRATION CONTROLLED TRANSIENT ELASTOGRAPHY (VCTE) LIVER ELASTOGRAPHY W/O IMAG W/I&R Marcy Craig PA-C [address] [place] [address] [facility] [address] [place] [id number] Referral ID Status Reason Start Date Expiration Date Visits Requested Visits Authorized [id number] Pending Review Auto-Generat ed Referral 01/05/2023 01/06/2024 1 1 [facility] for referral (narrative)No reason for referral information availableSan [facility] Work Phone: Advance Directives No Advanced Directives Records FoundDocuments on File Type Date Recorded 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 Latest Code Status on File Code Status Date Activated Date Inactivated Comments Full Code 01/06/2017 4:08 AM 01/08/2017 4:48 PM Summary Purpose Family History No Family History Records FoundNo Family History Records FoundNo Family History Records FoundNo Family History Records FoundNo Family History Records FoundNo Family History Records FoundNo Family History Records Found Reason for Referral Specialty Diagnoses / Procedures Referred By Contac t Referred To Contact Cardiology Diagnoses Cardiac arrhythmia, unspecified Procedures Cardiac event monitor (30 days) [place] XTRNL ECG & 48 HR RECORDING [place] EXTERNAL ECG SCANNING ANALYSIS REPORT [place] [facility] ECG CONTINUOUS RHYTHM W/I&R UP TO 48 HRS [place] [facility] MOBILE CV TELEMETRY W/I&REPORT 30 DAYS [place] [facility] MOBILE CV TELEMETRY W/TECHNICAL SUPPORT Brock Dent MD [address] [place] [address] Referral ID Status Reason Start Date Expiration Date Visits Re quested Visits Authorized [id number] Closed 03/21/2024 03/16/2025 1 1 Chief Complaint and Reason for Visit Chief Complaint Admit Date FOLLOW UP March 17, 2025 3:31 pm Additional Source Comments Care Teams (unrecognized sec tion and content) [employer] Transactions Attorney Relationship Specialty Start Date End Date Brock Dent MD [address] [place] [address] PCP - General 01/05/17 [employer] Technology Transactions Attorney Relationship Specialty Start Date End Date Brock Dent MD [address] [facility] [address] [place] [id number] PCP - General Family Medicine 11/19/22 [employer] Transactions Attorney Relationship Specialty Start Date End Date Brock Dent MD [address] [facility] [address] [place] [id number] PCP - General Family Medicine 11/19/22 [employer] Transactions Attorney Relationship Specialty Start Date End Date Brock Dent MD [address] [place] [id number] PCP - General 01/05/17 [employer] Transactions Attorney Relationship Specialty Start Date End Date Brock Dent MD [address] [place] [id number] PCP - General 01/05/17 [employer] Transactions Attorney Relationship Specialty Start Date End Date Brock Dent MD [address] [place] [address] PCP - General 01/05/17 [employer] Transactions Attorney Relationship Specialty Start Date End Date Brock Dent MD [address] [place] [id number] PCP - General 01/05/17 [employer] Transactions Attorney Relationship Specialty Start Date End Date Brock Dent MD [address] [place] [id number] PCP - General 01/05/17 [employer] Transactions Attorney Relationship Specialty Start Date End Date Brock Dent MD [address] [place] [id number] PCP - General Family Medicine 11/19/22 Team Status: Active Member Role/Relationship Status Dates Dr. Reba Leyva MD Primary Care Provider Active Team Status: Inactive Member Role/Relationship Status Dates Dr. Reba Leyva MD Primary Care Provider Active Start: March 17, 2025 End: March 17, 2025 Dr. Reba Leyva MD Referring Provider Active Start: March 17, 2025 End: March 17, 2025 EDY Bustillos Attending Provider Active S tart: March 17, 2025 End: March 17, 2025 (unrecognized sect ion and content) No Status Records FoundNo Status Records FoundNo Status Records FoundNo Status Records FoundNo Status Records FoundNo Status Records FoundNo Status Records Found INFORMATION SOURCE (unrecogn ized section and content) DATE CREATED AUTHOR 02/08/2022 [facility] DATE CREATED AUTHOR AUTHOR'S ORGANIZ ATION 01/06/2023 [facility] DATE CREATED AUTHOR AUTHOR'S ORGANIZ ATION 03/01/2024 [facility] DATE CREATED AUTHOR AUTHOR'S ORGANIZ ATION 05/02/2024 [facility] DATE CREATED AUTHOR AUTHOR'S ORGANIZ ATION 11/16/2024 [facility] DATE CREATED AUTHOR AUTHOR'S ORGANIZ ATION 12/16/2024 [facility] DATE CREATED AUTHOR AUTHOR'S ORGANIZ ATION 04/14/2025 [facility] Care Team (unrecognized sect ion and content) Care Team Personnel Name: PHYSICIAN, NOT RECORDED Member Role: Primary Care Physician Source Comments (unrecognize d section and content) In the event this informatio n is protected by the Federal Confidentiality of Alcohol and Drug Abuse Patient Records regulations: The Federal rules restrict any use of the information to criminally investigate or prosecute any alcohol or drug abuse patient.[facility] the event this information is protected by the Federal Confidentiality of Alcohol and Drug Abuse Patient Records regulations: The Federal rules restrict any use of the information to criminally investigate or prosecute any alcohol or drug abuse patient.[facility] the event this information is protected by the Federal Confidentiality of Alcohol and Drug Abuse Patient Records regulations: The Federal rules restrict any use of the information to criminally investigate or prosecute any alcohol or drug abuse patient.[facility] Reason for Visit (unrecogniz ed section and content) Reason Comments Abnormal liver US US/Labs referral to scanning Reason Comments Fibroscan order Reason Onset Date Comments Heart Problem 02/12/2024 Reason Onset Date Comments Chest Pain 03/17/2024 Specialty Diagnoses / Procedures Referred By Contac t Referred To Contact Cardiology Diagnoses Cardiac arrhythmia, unspecified Procedures Cardiac event monitor (30 days) [place] XTR[place] ECG & 48 HR RECORDING [place] EXTERNAL ECG SCANNING ANALYSIS REPORT [place] ECG CONTINUOUS RHYTHM W/I&R UP TO 48 HRS [place] X[facility] MOBILE CV TELEMETRY W/I&REPORT 30 DAYS [place] [facility] MOBILE CV TELEMETRY W/TECHNICAL SUPPORT Brock Dent MD [address] [facility] [address] [place] [address] Referral ID Status Reason Start Date Expiration Date Visits Re quested Visits Authorized [id number] Closed 03/21/2024 03/16/2025 1 1 Reason Comments Fibroscan Reason Comments Flu Like Symptoms Severe nausea and co ugh - Entered by patientStarted last wk Thursday, scratchy throat, fever 103.5, nausea, sinus congestion, rattling in chest, pt hears bubbles in ears, vibration in chest, has taken mucinex tylenol and dramamine Goals (unrecognized section and content) Goals may be documented in a n alternate section FOR RECORDS PERTAINING TO PATIENTS WHO ARE OR HAVE BEEN ENROLLED IN A CHEMICAL DEPENDENCY/SUBSTANCEABUSE PROGRAM, SOME INFORMATION MAY BE OMITTED. This clinical summary was aggregated from multiple sources. Caution should be exercised in using it in the provision of clinical care. This summary normalizes information from multiple sources, and as a consequence, information in this document may materially change the coding, format and clinical context of patient data. In addition, data may be omitted in some cases. CLINICAL DECISIONS SHOULD BE BASED ON THE PRIMARY CLINICAL RECORDS. [employer] provides no warranty or guarantee of the accuracy or completeness of information in this document.
[2025-04-29 12:51] LABS: Hematocrit 46.7 % (40-54); Hemoglobin 16.0 g/dL (13.0-16.5); Immature Granulocytes Count 0.040 X10^3/uL (0.0-0.0); Mean Corp Hgb Conc 34.3 g/dL (32-36); Mean Corpuscular Volume 83.4 fL (80-94); Mean Platelet Vol. 11.1 fl (6.2-12.0); NRBC Flagged by Analyzer 0 % (0-5); Platelet Count 287 K/mm3 (150-450); RBC Distribution Width CV 12.7 % (11.6-14.6); RBC Distribution Width SD 38.5 fl (35.1-43.9); Red Blood Count 5.60 M/mm3 (4.6-6.2); White Blood Count 9.6 K/mm3 (4.4-11.0)
[2025-04-29 13:25] LABS: AST(SGOT) 41 U/L (<=37); Alanine Aminotransfer ALT/SGPT 50 U/L (<=46); Albumin, Serum 4.1 g/dL (3.5-5.0); Alkaline Phosphatase 129 U/L (40-129); Anion Gap 15 (5-15); BUN 13 mg/dL (4-19); BUN/Creat Ratio 16.4 RATIO (10-20); Calcium,Total 9.4 mg/dL (7.6-11.0); Carbon Dioxide 21.0 mmol/L (21.0-32.0); Chloride 102 mmol/L (98-108); Ferritin 175 ng/mL (37-417); Globulin 3.2 g/dL (2.2-4.2); Glucose 148 mg/dL (70-99); Potassium 4.3 mmol/L (3.3-5.1)
== END | disposition home or self-care (01) ==
LOC: LAB 11:31
PROVIDERS: PCP Family Medicine; Referring Provider Family Medicine; Visit Provider Family Medicine
DX: E11.9 Type 2 diabetes mellitus without complications (principal); K76.0 Fatty (change of) liver, not elsewhere classified
CPT/HCPCS: 36415; 80053; 82728; 85025